=== PATIENT | male | born 1965 | race African-American/Black ===

== ENCOUNTER 2016-05-29 11:12 | Emergency (ER) | payer BC, MEDICAID ==
[~2016-05-29] VITALS: Ht 165.1 cm; Wt 65.9 kg
[~2016-05-29 11:12] MED LIST: COZA50TA PO; HYDR-3533 PO; HYDR50TA15 PO; LABE200T2 PO; NEPHRO PO; OMEP20TA39 PO
[2016-05-29 11:14] VITALS: BP 214/125; PULSE 96; RESP 29; TEMP 97.6; O2SAT 97
[2016-05-29] MEDS ORDERED: MORPHINE SULFATE 4 MG/ML INJ IM ONE (11:45)
[2016-05-29] MEDS ORDERED: ONDANSETRON HCL 4 MG/2 ML VIAL IM ONE (11:45)
[2016-05-29] MEDS ORDERED: NEPHTAB3 PO (11:55)
[2016-05-29] MEDS ORDERED: COZA50TA PO (11:55)
[2016-05-29] MEDS ORDERED: LABE200T2 PO (11:55)
[2016-05-29] MEDS ORDERED: HYDR50TA15 PO (11:55)
[2016-05-29] MEDS ORDERED: OMEP20TA PO (11:55)
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
[2016-05-29 12:10] VITALS: BP 214/110; PULSE 98; RESP 18
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
[2016-05-29] MEDS ORDERED: ACETAMINOPHEN/HYDROcodone 325 MG/5 MG TAB PO ONE (13:00)
[2016-05-29] MEDS ORDERED: hydrALAZINE HCL 50 MG TAB PO ONE (13:00)
[2016-05-29] MEDS ORDERED: LABETALOL HCL 200 MG TAB PO ONE (13:00)
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
[2016-05-29] MEDS ORDERED: HYDR-3533 PO (13:42)
[2016-05-29 14:10] VITALS: BP 108/56; PULSE 78; RESP 17; TEMP 97.8; O2SAT 98
--- NOTE | 2016-05-29 15:50 | RADRPT ---
EXAM DATE/TIME: 05/29/2016 14:41 [facility] COMPARISON: US ABDOMEN - LIVER, October 22, 2012, 14:24. INDICATIONS : Left arm swelling and pain. MEDICAL HISTORY : Hypertension. Renal failure. SURGICAL HISTORY : Hernia repair. Left arm AV fistula. ENCOUNTER: Subsequent ACUITY: 1 day PAIN SCORE: 3/10 LOCATION: Left arm. FINDINGS: There is spontaneous flow documented in the brachial, basilic, cephalic, axillary, and subclavian vei ns. The vessels are compressible and augmentation response is documented. No filling defects are se en. Note is made of a large AV fistula for hemodialysis within the arm. It is widely patent. CONCLUSION: 1. No DVT is identified. 2. The patient's AV fistula is patent. Saran Egan MD on May 29, 2016 at 15:47 Board Certified Radiologist. This report was verified electronically.
[2016-05-29 16:00] VITALS: BP 120/77; TEMP 97.8
== END 2016-05-29 16:00 | disposition home or self-care (01) ==
LOC: NEPC 11:12
DX: S40.022A Contusion of left upper arm, initial encounter (principal); V19.9XXA Pedal cyclist (driver) (passenger) injured in unspecified traffic accident, initial encounter; Y93.55 Activity, bike riding
CPT/HCPCS: 73080; 73090; 73130; 93971; 96372; 99284; J2270; J2405

== ENCOUNTER 2016-06-26 20:06 | Observation (INO) | payer MEDICAID ==
[~2016-06-26 20:06] MED LIST changes: -NEPHRO PO; +NEPHTAB3 PO; +OMEP20TA PO; -OMEP20TA39 PO
[2016-06-26 20:08] VITALS: BP 180/120; PULSE 98; RESP 20; TEMP 98.8; O2SAT 94
--- NOTE | 2016-06-26 20:29 | PD ---
Physical Exam Time Seen by Provider: 20:29 Narrative 50 y/o male c/o of cp/sob/neck pain for 1.5 hrs, started after a nap. Missed dialysis yesterday. Dialysis trs. vital signs reviewed. Seen at triage desk. Awaiting bed placement. Data Data Last Documented VS Vital Signs Date Time Temp Pulse Resp B/P Pulse Ox O2 Delivery O2 Flow Rate FiO2 06/26/16 20:08 98.8 98 20 180/120 94 Room Air [facility] Medical Record Reviewed: Yes Supervised Visit with BERNY: Mike Landa June 26, 2016 20:29
[2016-06-26] MEDS ORDERED: SODIUM CHLORIDE 0.9% FLUSH 10 ML FLUSH IVF PRN (21:15)
[2016-06-26] MEDS ORDERED: ASPIRIN 81 MG CHEW TAB PO ONE (21:15)
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
[2016-06-26 21:20] VITALS: RESP 22; O2SAT 98
[2016-06-26 21:25] LABS: AUTOMATED NEUTROPHIL # 8.7 TH/MM3 (1.8-7.7); BASOPHIL # 0.1 TH/MM3 (0-0.2); BASOPHIL % 0.6 % (0.0-2.0); EOSINOPHIL # 0.1 TH/MM3 (0-0.4); EOSINOPHIL % 0.9 % (0.0-4.0); HEMATOCRIT 39.8 % (39.0-51.0); HEMO FLAGS DIFF FINAL; LYMPH % 13.8 % (9.0-44.0); LYMPHOCYTE # 1.6 TH/MM3 (1.0-4.8); MEAN CELL VOLUME 91.7 FL (80.0-100.0); MEAN CORPUSCULAR HEMOGLOBIN 31.1 PG (27.0-34.0); MEAN CORPUSCULAR HGB CONC 33.9 % (32.0-36.0); MONO % 8.3 % (0.0-8.0); NEUT % 76.4 % (16.0-70.0); PLATELET COUNT 225 TH/MM3 (150-450); RED BLOOD COUNT 4.34 MIL/MM3 (4.50-5.90); RED CELL DISTRIBUTION WIDTH 14.3 % (11.6-17.2); WHITE BLOOD COUNT 11.4 TH/MM3 (4.0-11.0)
[2016-06-26 21:40] LABS: APTT (PATIENT) 26.6 SEC (24.3-30.1); PROTHROMBIN TIME - PATIENT 10.7 SEC (9.8-11.6)
--- NOTE | 2016-06-26 21:43 | RADRPT ---
EXAM DATE/TIME: 06/26/2016 21:25 [facility] COMPARISON: CHEST SINGLE AP, April 21, 2014, 5:31. INDICATIONS : Chest pain and short of breath. MEDICAL HISTORY : Hypertension. Renal failure. SURGICAL HISTORY : Hernia repair. Left arm AV fistula. ENCOUNTER: Initial ACUITY: 1 day PAIN SCORE: 5/10 LOCATION: Bilateral chest FINDINGS: A single view of the chest demonstrates the lungs to be symmetrically aerated without evidence of mas s, infiltrate or effusion. The cardiomediastinal contours are unremarkable. Osseous structures are intact. CONCLUSION: No acute disease. Da Zuniga MD on June 26, 2016 at 21:39 Board Certified Radiologist. This report was verified electronically.
[2016-06-26 22:04] LABS: ANION GAP 7 MEQ/L (5-15); AST (GOT) 31 U/L (15-37); BICARBONATE 27.1 MEQ/L (21.0-32.0); BLOOD UREA NITROGEN 22 MG/DL (7-18); CHLORIDE 108 MEQ/L (98-107); GLOMERULAR FILTRATION RATE 29 ML/MIN (>89); MAGNESIUM 2.1 MG/DL (1.5-2.5); POTASSIUM 3.7 MEQ/L (3.5-5.1); SODIUM (NA) 142 MEQ/L (136-145)
[2016-06-26 22:08] LABS: ALKALINE PHOSPHATASE 100 U/L (45-117); ALT (GPT) 27 U/L (12-78); CREATINE KINASE 571 U/L (39-308); TOTAL BILIRUBIN ADULT 1.1 MG/DL (0.2-1.0)
[2016-06-26 22:21] LABS: CKMB 1.3 NG/ML (0.5-3.6)
[2016-06-26 22:45] VITALS: BP 199/98; PULSE 92; RESP 17; O2SAT 95
[2016-06-26] MEDS ORDERED: hydrALAZINE HCL 20 MG/ML VIAL IV PUSH ONE (22:45)
[2016-06-26 23:00] VITALS: BP 194/96; PULSE 96; RESP 16; O2SAT 96
[2016-06-26] MEDS ORDERED: SODIUM CHLORIDE 0.9% FLUSH 10 ML FLUSH IV FLUSH PRN (23:15)
[2016-06-26] MEDS ORDERED: NALOXONE HCL 0.4 MG/ML AMP IV PRN (23:15)
[2016-06-27] VITALS (12 sets, daily range): BP systolic 115–189; BP diastolic 66–111; PULSE 9–99; RESP 0–20; TEMP 98.2–98.5; O2SAT 92–95
[2016-06-27] MEDS ORDERED: hydrALAZINE HCL 20 MG/ML VIAL IV PUSH ONE (00:30)
[2016-06-27 05:35] LABS: AUTOMATED NEUTROPHIL # 6.6 TH/MM3 (1.8-7.7); BASOPHIL % 0.5 % (0.0-2.0); EOSINOPHIL # 0.2 TH/MM3 (0-0.4); EOSINOPHIL % 1.8 % (0.0-4.0); HEMATOCRIT 38.2 % (39.0-51.0); HEMO FLAGS DIFF FINAL; LYMPH % 14.9 % (9.0-44.0); LYMPHOCYTE # 1.3 TH/MM3 (1.0-4.8); MEAN CELL VOLUME 92.4 FL (80.0-100.0); MEAN CORPUSCULAR HEMOGLOBIN 30.4 PG (27.0-34.0); MEAN CORPUSCULAR HGB CONC 32.9 % (32.0-36.0); MONO % 7.4 % (0.0-8.0); NEUT % 75.4 % (16.0-70.0); PLATELET COUNT 200 TH/MM3 (150-450); RED BLOOD COUNT 4.13 MIL/MM3 (4.50-5.90); RED CELL DISTRIBUTION WIDTH 14.2 % (11.6-17.2); WHITE BLOOD COUNT 8.8 TH/MM3 (4.0-11.0)
[2016-06-27 05:45] LABS: BICARBONATE 26.7 MEQ/L (21.0-32.0); POTASSIUM 3.3 MEQ/L (3.5-5.1)
--- NOTE | 2016-06-27 06:28 | HHI.HP ---
[facility] Service [facility] Primary Care Physician Orlin Hopson DO Admission Diagnosis Chest pain, ESRD on HD Diagnoses: Chief Complaint: could not breathe Travel History International Travel<30 Days: No Contact w/Intl Traveler <30 Da: No Traveled to Known Affected Are: No History of Present Illness History from patient, ER physician communication current review of medical records. Patient reported that he came to the hospital because he could not breathe for the past 24 hours. He denies any cough. Denies fever. Denies seeing any swelling of his legs. He states that he just simply could not breathe anymore. He reports his last dialysis was on Friday. he states he misses Friday dialysis Patient also reports of chest pain. He states that it is midsternal, and just sitting there. Not associated with taking a deep breath. No radiation. Apart from the above, patient denies any nausea/palpitations/focal deficits. He denies any vomiting/diarrhea. Review of Systems Except as stated in HPI: all other systems reviewed are Neg Past Family Social History Past Medical History Hypertension diabetes ESRD on hemodialysis Past Surgical History av fistula Allergies: Coded Allergies: *MDRO Multi-Drug Resistant Organism (Verified Adverse Reaction, Unknown, ) MRSA PCR Screen POSITIVE - 06/27/2016 MRSA (arm) - 08/2003 Family History mother on dialysis Social History smokes half a pack socially drinks no drugs Physical Exam Vital Signs Vital Signs Date Time Temp Pulse Resp B/P Pulse Ox O2 Delivery O2 Flow Rate FiO2 06/27/16 04:23 94 06/27/16 04:20 9 161/96 06/27/16 03:31 98.4 90 0 189/108 95 06/27/16 01:00 92 14 173/93 95 Room Air 06/27/16 00:28 93 14 177/94 95 Room Air 06/27/16 00:18 99 14 184/102 95 Room Air 06/26/16 23:00 96 16 194/96 96 Room Air 06/26/16 22:45 92 17 199/98 95 Room Air 06/26/16 21:20 22 98 Room Air 06/26/16 20:28 06/26/16 20:08 98.8 98 20 180/120 94 Room Air Physical Exam GENERAL: This is a well-nourished, well-developed patient, in no apparent distress. SKIN: No rashes, ecchymoses or lesions. Cool and dry. HEAD: Atraumatic. Normocephalic. No temporal or scalp tenderness. EYES: No scleral icterus. No injection or drainage. ENT: Nose without bleeding, purulent drainage or septal hematoma. Airway patent. NECK: Trachea midline. No JVD CARDIOVASCULAR: Regular rate and rhythm without murmurs, gallops, or rubs. RESPIRATORY: bilateral minimal basilar rales GASTROINTESTINAL: Abdomen soft, non-tender, nondistended. No guarding. MUSCULOSKELETAL: Extremities without clubbing, cyanosis, or edema. No calf tenderness. NEUROLOGICAL: Awake and alert. Motor and sensory grossly within normal limits. Normal speech. Laboratory Laboratory Tests Test 06/26/16 06/27/16 06/27/16 21:15 03:14 04:34 White Blood Count 11.4 8.8 Red Blood Count 4.34 4.13 Hemoglobin 13.5 12.6 Hematocrit 39.8 38.2 Mean Corpuscular Volume 91.7 92.4 Mean Corpuscular Hemoglobin 31.1 30.4 Mean Corpuscular Hemoglobin 33.9 32.9 Concent Red Cell Distribution Width 14.3 14.2 Platelet Count 225 200 Mean Platelet Volume 8.7 9.2 Neutrophils (%) (Auto) 76.4 75.4 Lymphocytes (%) (Auto) 13.8 14.9 Monocytes (%) (Auto) 8.3 7.4 Eosinophils (%) (Auto) 0.9 1.8 Basophils (%) (Auto) 0.6 0.5 Neutrophils # (Auto) 8.7 6.6 Lymphocytes # (Auto) 1.6 1.3 Monocytes # (Auto) 0.9 0.7 Eosinophils # (Auto) 0.1 0.2 Basophils # (Auto) 0.1 0.0 CBC Comment DIFF FINAL DIFF FINAL Differential Comment Prothrombin Time 10.7 Prothromb Time International 1.0 Ratio Activated Partial 26.6 Thromboplast Time Sodium Level 142 143 Potassium Level 3.7 3.3 Chloride Level 108 108 Carbon Dioxide Level 27.1 26.7 Anion Gap 7 8 Blood Urea Nitrogen 22 21 Creatinine 2.81 2.66 Estimat Glomerular Filtration 29 31 Rate Random Glucose 94 180 Calcium Level 8.7 8.5 Magnesium Level 2.1 Total Bilirubin 1.1 Aspartate Amino Transf 31 (AST/SGOT) Alanine Aminotransferase 27 (ALT/SGPT) Alkaline Phosphatase 100 Total Creatine Kinase 571 570 Creatine Kinase MB 1.3 1.0 Creatine Kinase MB % 0.2 0.2 Troponin I 0.03 0.02 Total Protein 6.7 Albumin 3.1 Lipase 131 Result Diagram: 06/27/16 0434 06/27/16 0434 Imaging Last 48 hours Impressions Chest X-Ray 06/26/162105 Signed Impressions: Service Date/Time: Sunday, June 26, 2016 21:25 - CONCLUSION: No acute disease. Da Zuniga MD Assessment and Plan Assessment and Plan Impression: Shortness of breathsecondary to missed dialysis session Chest painrule out ACS Hypertension diabetes ESRD on hemodialysis Plan: Serial cardiac enzymes and EKGs. History is not suggestive of ACS. Will want to cover with sliding scale coverage. Nephrology consult for dialysis in a.m. DVT prophylaxiswith heparin. Discussed Condition With Patient, ER physician from her previous nurse Jitendra Lazo MD June 27, 2016 06:28
[2016-06-27] MEDS ORDERED: GLUCAGON 1 MG/ML VIAL OTHER PRN (07:30)
[2016-06-27] MEDS ORDERED: DEXTROSE 50% IN WATER 50 ML VIAL(D50) IV PUSH PRN (07:30)
[2016-06-27] MEDS ORDERED: SODIUM CHLOR 0.9% 1000 ML INJ 1,000 ML IV PRN ×3 (09:22)
[2016-06-27] MEDS ORDERED: HEPARIN SODIUM - IV 10,000 UNITS/10 ML VIAL IVF PRN (09:30)
[2016-06-27] MEDS ORDERED: ALBUMIN HUMAN 25% 25 GM/100 ML BAGP IV PRN (09:30)
[2016-06-27] MEDS ORDERED: SODIUM CHLORIDE 0.9% FLUSH 10 ML FLUSH IV FLUSH PRN (09:30)
[2016-06-27] MEDS ORDERED: NITROGLYCERIN 0.4 MG SL 25 TABS/BTL SL PRN (09:30)
[2016-06-27] MEDS ORDERED: GELATIN 12 MM/7 MM FOAM TOP PRN (09:30)
[2016-06-27] MEDS ORDERED: GENTAMICIN SULFATE (DIALYSIS USE ONLY) 20 MG/2 ML VIAL IV PRN (09:30)
[2016-06-27] MEDS ORDERED: diphenhydrAMINE HCL 25 MG CAP PO PRN (09:30)
[2016-06-27] MEDS ORDERED: HEPARIN SODIUM - IV 10,000 UNITS/10 ML VIAL PRN (09:30)
[2016-06-27] MEDS ORDERED: MANNITOL 12.5 GM/50 ML VIAL IV PRN (09:30)
[2016-06-27] MEDS ORDERED: ACETAMINOPHEN 325 MG TAB PO PRN (09:30)
[2016-06-27] MEDS ORDERED: ONDANSETRON HCL 4 MG/2 ML VIAL IV PRN (09:30)
[2016-06-27] MEDS ORDERED: cloNIDine HCL 0.1 MG TAB PO PRN (09:30)
--- NOTE | 2016-06-27 09:39 | PD.CONS ---
HPI Service Nephrology Consult Requested By Dr. Valdez Reason for Consult ESRD on HD TTS Primary Care Physician Orlin Hopson, DO History of Present Illness This is out 50 y/o AAM dialysis patient, normally receives dialysis TTS. He did not show up for treatment Friday, was admitted last night for shortness of breath and also reports midsternal chest pain. Despite missing dialysis his creatinine is only 2.6. He makes some urine but not a lot. PMH of Hepatitis B, hx of IVDA, HTN, we were consulted for dialysis management. His K is 3.3 today, BP was elevated on admission. He has functioning AVF on his left arm for dialysis, he is a full code. (Zunilda Sharpe) Review of Systems Constitutional: DENIES: Fatigue, Weight gain Respiratory: COMPLAINS OF: Shortness of breath, DENIES: Sputum production Cardiovascular: COMPLAINS OF: Chest pain, Dyspnea on Exertion, DENIES: Palpitations, Lower Extremity Edema Gastrointestinal: DENIES: Abdominal pain, Nausea (Zunilda Sharpe) Past Family Social History Allergies: Coded Allergies: *MDRO Multi-Drug Resistant Organism (Verified Adverse Reaction, Unknown, ) MRSA PCR Screen POSITIVE - 06/27/2016 MRSA (arm) - 08/2003 Past Medical History ESRD on HD TTS HTN hepatitis B Hx IVDA metabolic bone disorder Past Surgical History Left arm AVF inguinal hernia repair Reported Medications Omeprazole 20 Mg Tab 20 Mg PO DAILY Nephro-Emmanuel (B-Complex W/ C & Folic Acid) 1 Tab 1 Tab PO DAILY Labetalol (Labetalol HCl) 200 Mg Tab 200 Mg PO BID Cozaar (Losartan Potassium) 50 Mg Tab 50 Mg PO DAILY Hydralazine (Hydralazine HCl) 50 Mg Tab 50 Mg PO TID Take with a meal Active Ordered Medications Current Medications Medications (Trade) Dose Ordered Sig/Deanna Route Start Time Stop Time Status Last Admin (NS Flush) 2 ml UNSCH PRN IV FLUSH 06/26/16 23:15 (NS Flush) 2 ml BID IV FLUSH 06/27/16 09:00 (Narcan Inj) 0.4 mg UNSCH PRN IV 06/26/16 23:15 (Apresoline) 50 mg TID PO 06/27/16 09:00 (Trandate) 200 mg BID PO 06/27/16 09:00 (Cozaar) 50 mg DAILY PO 06/27/16 09:00 (Nephrocaps) 1 cap DAILY PO 06/27/16 09:00 (Protonix) 20 mg DAILY PO 06/27/16 09:00 (D50w (Vial) Inj) 25 ml UNSCH PRN IV PUSH 06/27/16 07:30 Glucagon 1 mg 1 mg UNSCH PRN OTHER 06/27/16 07:30 (NS 1000 ml Inj) 1,000 ml @ 0 mls/hr Q0M PRN IV 06/27/16 09:22 UNV Heparin Sodium (Porcine) 8000 units 8,000 units UNSCH PRN IVF 06/27/16 09:30 UNV Sodium Chloride 1,000 ml @ 200 mls/hr Q5H PRN IV 06/27/16 09:22 UNV (NS 1000 ml Inj) 1,000 ml @ 0 mls/hr Q0M PRN IV 06/27/16 09:22 UNV (Mannitol Inj) 12.5 gm UNSCH PRN IV 06/27/16 09:30 UNV (Albumin 25% Inj) 25 gm UNSCH PRN IV 06/27/16 09:30 UNV (NS Flush) 5 ml UNSCH PRN IV FLUSH 06/27/16 09:30 UNV (Heparin Inj) UNSCH PRN .XX 06/27/16 09:30 UNV (Gentamicin (Dialysis) Inj) 20 mg UNSCH PRN IV 06/27/16 09:30 UNV (Zofran Inj) 4 mg UNSCH PRN IV 06/27/16 09:30 UNV (Tylenol) 650 mg UNSCH PRN PO 06/27/16 09:30 UNV (Benadryl) 25 mg UNSCH PRN PO 06/27/16 09:30 UNV (Nitrostat Sl) 0.4 mg UNSCH PRN SL 06/27/16 09:30 UNV (Catapres) 0.1 mg UNSCH PRN PO 06/27/16 09:30 UNV (Gelfoam 12 Mm/7 Mm Top) 1 foam UNSCH PRN TOP 06/27/16 09:30 UNV Family History his mother has ESRD Social History former smoker former IVDA denies ETOH unemployed lives with full code (Zunilda Sharpe) Physical Exam Vital Signs Vital Signs Date Time Temp Pulse Resp B/P Pulse Ox O2 Delivery O2 Flow Rate FiO2 06/27/16 07:35 98.2 85 18 184/111 95 06/27/16 04:23 94 06/27/16 04:20 9 161/96 06/27/16 03:31 98.4 90 0 189/108 95 06/27/16 01:00 92 14 173/93 95 Room Air 06/27/16 00:28 93 14 177/94 95 Room Air 06/27/16 00:18 99 14 184/102 95 Room Air 06/26/16 23:00 96 16 194/96 96 Room Air 06/26/16 22:45 92 17 199/98 95 Room Air 06/26/16 21:20 22 98 Room Air 06/26/16 20:28 06/26/16 20:08 98.8 98 20 180/120 94 Room Air Physical Exam MIddle aged AAM Neuro: awake/alert and oriented with no deficit CV: S1/S2, regular no murmurs Resp: clear in all orozco GI: flat, soft, non tender : no scrotal edema Ext: AVF left arm, + thrill/bruit; no edema to lower ext Laboratory Laboratory Tests Test 06/26/16 06/27/16 06/27/16 21:15 03:14 04:34 White Blood Count 11.4 8.8 Red Blood Count 4.34 4.13 Hemoglobin 13.5 12.6 Hematocrit 39.8 38.2 Mean Corpuscular Volume 91.7 92.4 Mean Corpuscular Hemoglobin 31.1 30.4 Mean Corpuscular Hemoglobin 33.9 32.9 Concent Red Cell Distribution Width 14.3 14.2 Platelet Count 225 200 Mean Platelet Volume 8.7 9.2 Neutrophils (%) (Auto) 76.4 75.4 Lymphocytes (%) (Auto) 13.8 14.9 Monocytes (%) (Auto) 8.3 7.4 Eosinophils (%) (Auto) 0.9 1.8 Basophils (%) (Auto) 0.6 0.5 Neutrophils # (Auto) 8.7 6.6 Lymphocytes # (Auto) 1.6 1.3 Monocytes # (Auto) 0.9 0.7 Eosinophils # (Auto) 0.1 0.2 Basophils # (Auto) 0.1 0.0 CBC Comment DIFF FINAL DIFF FINAL Differential Comment Prothrombin Time 10.7 Prothromb Time International 1.0 Ratio Activated Partial 26.6 Thromboplast Time Sodium Level 142 143 Potassium Level 3.7 3.3 Chloride Level 108 108 Carbon Dioxide Level 27.1 26.7 Anion Gap 7 8 Blood Urea Nitrogen 22 21 Creatinine 2.81 2.66 Estimat Glomerular Filtration 29 31 Rate Random Glucose 94 180 Calcium Level 8.7 8.5 Magnesium Level 2.1 Total Bilirubin 1.1 Aspartate Amino Transf 31 (AST/SGOT) Alanine Aminotransferase 27 (ALT/SGPT) Alkaline Phosphatase 100 Total Creatine Kinase 571 570 Creatine Kinase MB 1.3 1.0 Creatine Kinase MB % 0.2 0.2 Troponin I 0.03 0.02 Total Protein 6.7 Albumin 3.1 Lipase 131 (Zunilda Sharpe) Result Diagram: 06/27/16 0434 06/27/16 0434 Imaging Last 72 hours Impressions Chest X-Ray 06/26/162105 Signed Impressions: Service Date/Time: Friday, June 26, 2016 21:25 - CONCLUSION: No acute disease. Da Zuniga MD (Zunilda Sharpe) Assessment and Plan Problem List: (1) ESRD (end stage renal disease) Plan: Resume TTS dialysis, orders entered, will have treatment today we discussed the possibility of holding dialysis as his creatinine is not that high despite having no HD since Friday; however he reports shortness of breath when he has missed treatments, similar to the symptoms today; therefore we will continue TTS HD he has patent AVF on left side for dialysis K 3.3, give 20 po KCL, repeat labs tomorrow avoid IVF, gadolinium renal diet with no protein restriction (2) HTN (hypertension) Plan: losartan, labetalol, and hydralazine were restarted per home medication list monitor BP and titrate medications as needed (3) Metabolic bone disease Plan: check phosphorus, initiate binders if needed (Zunilda Sharpe) Problem List: (1) ESRD (end stage renal disease) Plan: Resume TTS dialysis, orders entered, will have treatment today we discussed the possibility of holding dialysis as his creatinine is not that high despite having no HD since Friday; however he reports shortness of breath when he has missed treatments, similar to the symptoms today; therefore we will continue TTS HD he has patent AVF on left side for dialysis K 3.3, give 20 po KCL, repeat labs tomorrow avoid IVF, gadolinium renal diet with no protein restriction (2) HTN (hypertension) Plan: losartan, labetalol, and hydralazine were restarted per home medication list monitor BP and titrate medications as needed (3) Metabolic bone disease Plan: check phosphorus, initiate binders if needed Assessment and Plan patient was seen and examined. Agree with above assessment and plan. He can be discharged from renal standpoint. (Bernabe Pearson MD) Zunilda SharpeP June 27, 2016 09:39 Bernabe Pearson MD June 27, 2016 20:23
[2016-06-27] MEDS ORDERED: POTASSIUM CHLORIDE 20 MEQ CONTROLLED RELEASE TAB PO ONE (09:45)
[2016-06-27] MEDS: PANTOPRAZOLE SOD 20 MG DELAYED RELEASE TAB PO SCH (09:52)
[2016-06-27] MEDS: SODIUM CHLORIDE 0.9% FLUSH 10 ML FLUSH IV FLUSH SCH ×2 (09:52→20:32)
[2016-06-27] MEDS: LABETALOL HCL 200 MG TAB PO SCH ×2 (09:52→20:31)
[2016-06-27] MEDS: LOSARTAN 50 MG TAB PO SCH (09:52)
[2016-06-27] MEDS: hydrALAZINE HCL 50 MG TAB PO SCH ×3 (10:00→18:00)
[2016-06-27] MEDS: VITAMIN B CMPLX/VITC/FOLIC AC CAP PO SCH (10:09)
[2016-06-27] MEDS: INSULIN ASPART SUPPLEMENTAL SCALE SQ SCH ×3 (11:00→20:32)
[2016-06-27 12:15] LABS: CKMB 0.8 NG/ML (0.5-3.6)
--- NOTE | 2016-06-27 18:25 | EKG ---
Date Performed: 06/26/2016 Time Performed: 20:41:00 PTAGE: 50 years EKG: Sinus rhythm POSSIBLE LEFT ATRIAL ENLARGEMENT POSSIBLE LEFT VENTRICULAR HYPERTROPHY NONSPECIFIC T-WAVE ABNORMALIT Y ABNORMAL ECG Compared to prior tracing no significant change PREVIOUS TRACING : 10/23/2013 09.59 DOCTOR: Beka Hastings Interpretating Date/Time 06/27/2016 18:23:21
--- NOTE | 2016-06-27 18:25 | EKG ---
Date Performed: 06/26/2016 Time Performed: 20:58:03 PTAGE: 50 years EKG: Sinus rhythm POSSIBLE LEFT ATRIAL ENLARGEMENT POSSIBLE LEFT VENTRICULAR HYPERTROPHY NONSPECIFIC T-WAVE ABNORMALIT Y ABNORMAL ECG Compared to prior tracing no significant change PREVIOUS TRACING : 06/26/2016 20.41 DOCTOR: Beka Hastings Interpretating Date/Time 06/27/2016 18:23:09
--- NOTE | 2016-06-27 18:25 | EKG ---
Date Performed: 06/27/2016 Time Performed: 03:14:43 PTAGE: 50 years EKG: Sinus rhythm POSSIBLE LEFT ATRIAL ENLARGEMENT POSSIBLE LEFT VENTRICULAR HYPERTROPHY NONSPECIFIC T-WAVE ABNORMALIT Y ABNORMAL ECG Compared to prior tracing no significant change PREVIOUS TRACING : 06/26/2016 20.58 DOCTOR: Beka Hastings Interpretating Date/Time 06/27/2016 18:22:58
[2016-06-27] MEDS: SEVELAMER CARBONATE 800 MG TAB PO SCH (18:42)
[2016-06-28] VITALS: BP 119/74; PULSE 87; RESP 18; TEMP 98; O2SAT 92
[2016-06-28 03:43] VITALS: PULSE 82
[2016-06-28 04:00] VITALS: BP 135/78; PULSE 80; RESP 19; TEMP 98; O2SAT 92
[2016-06-28] MEDS: INSULIN ASPART SUPPLEMENTAL SCALE SQ SCH (06:46)
[2016-06-28 07:44] VITALS: O2SAT 92
[2016-06-28] MEDS: hydrALAZINE HCL 50 MG TAB PO SCH (08:17)
[2016-06-28] MEDS: SEVELAMER CARBONATE 800 MG TAB PO SCH (08:17)
[2016-06-28] MEDS: VITAMIN B CMPLX/VITC/FOLIC AC CAP PO SCH (08:17)
[2016-06-28] MEDS: LOSARTAN 50 MG TAB PO SCH (08:17)
[2016-06-28] MEDS: SODIUM CHLORIDE 0.9% FLUSH 10 ML FLUSH IV FLUSH SCH (08:18)
[2016-06-28] MEDS: LABETALOL HCL 200 MG TAB PO SCH (08:18)
[2016-06-28] MEDS: PANTOPRAZOLE SOD 20 MG DELAYED RELEASE TAB PO SCH (08:18)
[2016-06-28] MEDS ORDERED: POTASSIUM PHOSPHATE/SODIUM PHOSPHATE 250 MG TAB PO ONE (09:15)
--- NOTE | 2016-06-28 10:43 | HHI.PR ---
Subjective Remarks Follow up for chest pain, shortness of breath. The patient states he feels much better after receiving dialysis yesterday. Denies any chest pain or shortness of breath overnight. He is tolerating oral intake. He denies any other medical complaints. He feels ready for discharge. Objective Vitals Vital Signs Date Time Temp Pulse Resp B/P Pulse Ox O2 Delivery O2 Flow Rate FiO2 06/28/16 04:00 98.0 80 19 135/78 92 06/28/16 03:43 82 06/28/16 00:00 98.0 87 18 119/74 92 06/27/16 20:06 98.3 89 20 115/66 92 06/27/16 20:00 93 06/27/16 20:00 93 06/27/16 16:44 98.5 83 16 152/94 95 06/27/16 12:37 86 06/27/16 11:19 98.4 86 16 131/74 95 I/O 06/27/16 06/27/16 06/27/16 06/28/16 06/28/16 06/28/16 07:00 15:00 23:00 07:00 15:00 23:00 Intake Total 360 ml 320 ml Output Total 2500 ml Balance 360 ml -2500 ml 320 ml Intake Oral 360 ml 320 ml Output Hemodialysis 2500 ml # Voids 1 1 Result Diagram: 06/27/16 0434 06/27/16 0434 Imaging Last Impressions Chest X-Ray 06/26/162105 Signed Impressions: Service Date/Time: Sunday, June 26, 2016 21:25 - CONCLUSION: No acute disease. Da Zuniga MD Objective Remarks GENERAL: Well-nourished, well-developed middle aged AA male patient in [facility]. SKIN: Warm and dry. No rash. HEENT: Normocephalic. Atraumatic.Pupils equal and round. Mucous membranes pink and moist. NECK: Supple. Trachea midline. CARDIOVASCULAR: Regular rate and rhythm. S1, S2 noted. No murmur appreciated. RESPIRATORY: No accessory muscle use. Clear to auscultation. Breath sounds equal bilaterally. GASTROINTESTINAL: Abdomen soft, non-tender, nondistended. Normoactive bowel sounds x4. MUSCULOSKELETAL: No obvious deformities. Extremities without clubbing, cyanosis , or edema. NEUROLOGICAL: Awake and alert. No obvious cranial nerve deficits. Motor grossly within normal limits. Normal speech. PSYCHIATRIC: Appropriate mood and affect; insight and judgment normal. Medications and IVs Current Medications Medications (Trade) Dose Ordered Sig/Deanna Route Start Time Stop Time Status Last Admin (NS Flush) 2 ml UNSCH PRN IV FLUSH 06/26/16 23:15 (NS Flush) 2 ml BID IV FLUSH 06/27/16 09:00 06/27/16 20:32 (Narcan Inj) 0.4 mg UNSCH PRN IV 06/26/16 23:15 (Apresoline) 50 mg TID PO 06/27/16 09:00 06/28/16 08:17 (Trandate) 200 mg BID PO 06/27/16 09:00 06/28/16 08:18 (Cozaar) 50 mg DAILY PO 06/27/16 09:00 06/28/16 08:17 (Nephrocaps) 1 cap DAILY PO 06/27/16 09:00 06/28/16 08:17 (Protonix) 20 mg DAILY PO 06/27/16 09:00 06/28/16 08:18 (D50w (Vial) Inj) 25 ml UNSCH PRN IV PUSH 06/27/16 07:30 Glucagon 1 mg 1 mg UNSCH PRN OTHER 06/27/16 07:30 (NS 1000 ml Inj) 1,000 ml @ 0 mls/hr Q0M PRN IV 06/27/16 09:22 Heparin Sodium (Porcine) 8000 units 8,000 units UNSCH PRN IVF 06/27/16 09:30 Sodium Chloride 1,000 ml @ 200 mls/hr Q5H PRN IV 06/27/16 09:22 (NS 1000 ml Inj) 1,000 ml @ 0 mls/hr Q0M PRN IV 06/27/16 09:22 (Mannitol Inj) 12.5 gm UNSCH PRN IV 06/27/16 09:30 (Albumin 25% Inj) 25 gm UNSCH PRN IV 06/27/16 09:30 (NS Flush) 5 ml UNSCH PRN IV FLUSH 06/27/16 09:30 (Heparin Inj) UNSCH PRN .XX 06/27/16 09:30 (Gentamicin (Dialysis) Inj) 20 mg UNSCH PRN IV 5/4/17 09:30 (Zofran Inj) 4 mg UNSCH PRN IV 06/27/16 09:30 (Tylenol) 650 mg UNSCH PRN PO 06/27/16 09:30 (Benadryl) 25 mg UNSCH PRN PO 06/27/16 09:30 (Nitrostat Sl) 0.4 mg UNSCH PRN SL 06/27/16 09:30 (Catapres) 0.1 mg UNSCH PRN PO 06/27/16 09:30 (Gelfoam 12 Mm/7 Mm Top) 1 foam UNSCH PRN TOP 06/27/16 09:30 06/27/16 17:15 A/P Assessment and Plan 50-year-old male with history of HTN, ESRD on HD [facility], presents with a 1 day history of shortness of breath and chest pain after missing his dialysis. Shortness of Breath and Atypical Chest Pain: suspect secondary to Fluid Overload from missing dialysis. -ACS ruled out with negative serial cardiac enzymes x3 and EKG without acute ischemic changes. -Consult nephrology, received dialysis 06/27. -monitored on telemetry -Symptoms resolved s/p dialysis -cleared for discharge by nephrology ESRD on HD: follows with Dr. Moses as outpatient. On HD [facility]. -consult nephrology, received dialysis -outpatient follow up with Dr. Moses Hypertension: chronic, stable -continue patient's labetalol, cozaar, hydralazine Discharge Planning Discharge patient to home Condition on discharge: Improved Heart Healthy/Renal Diet as tolerated Ad Tasha activity Rx written: none. Follow-up with primary care physician Dr. Hopson and nephrology Yamile Cavanaugh PA-C June 28, 2016 10:42 am
--- NOTE | 2016-06-28 10:44 | HHI.DCPOC ---
Discharge Care Plan Diagnosis: (1) Chest pain in adult (2) ESRD (end stage renal disease) (3) HTN (hypertension) Goals to Promote Your Health * To prevent worsening of your condition and complications * To maintain your health at the optimal level Directions to Meet Your Goals Take your medications as prescribed Follow your dietary instruction Follow activity as directed Keep your appointments as scheduled Take your immunizations and boosters as scheduled If your symptoms worsen call your PCP, if no PCP go to Urgent Care Center or Emergency Room Smoking is Dangerous to Your Health. Avoid second hand smoke Call the 24-hour hour crisis hotline for domestic abuse at Yamile Jimenez PA-C June 28, 2016 10:44 am
[2016-06-28 10:54] LABS: BICARBONATE 29.9 MEQ/L (21.0-32.0); POTASSIUM 3.8 MEQ/L (3.5-5.1)
--- NOTE | 2016-06-28 11:16 | HHI.NPPN ---
Subjective Complaints: Chest Pain Renal Failure: Chronic, End Stage Renal Disease Interval History Resting. No chest pain currently. Dialyzed yesterday. (Zunilda Sharpe) Review of Systems Cardiovascular Cardiac: Chest Pain (Zunilda Sharpe) Objective Data Data 06/27/16 06/28/16 19:00 07:00 Intake Total 360 ml 320 ml Output Total 2500 ml Balance -2140 ml 320 ml Intake Oral 360 ml 320 ml Output Hemodialysis 2500 ml # Voids 1 1 Vital Signs Date Time Temp Pulse Resp B/P Pulse Ox O2 Delivery O2 Flow Rate FiO2 06/28/16 04:00 98.0 80 19 135/78 92 06/28/16 03:43 82 06/28/16 00:00 98.0 87 18 119/74 92 06/27/16 20:06 98.3 89 20 115/66 92 06/27/16 20:00 93 06/27/16 20:00 93 06/27/16 16:44 98.5 83 16 152/94 95 06/27/16 12:37 86 06/27/16 11:19 98.4 86 16 131/74 95 (Zunilda Sharpe) -: 06/27/16 0434 06/28/16 1011 Imaging Last 72 hours Impressions Chest X-Ray 06/26/162105 Signed Impressions: Service Date/Time: Sunday, June 26, 2016 21:25 - CONCLUSION: No acute disease. Da Zuniga MD (Zunilda Sharpe) Physical Exam General Appearance: Well Developed, Well Nourished, No Acute Distress, Sleeping ( Zunilda Sharpe) Throat Throat Exam: Oral Mucosa [place] & Moist (Zunilda Sharpe) Neck Neck Exam: Neck Supple (Zunilda Sharpe) Pulmonary Resp Exam: Clear Bilaterally, Breath Sounds Equal (Zunilda Sharpe) Cardiology CV Exam: Regular, Normal Sinus Rhythm, Good Perfusion (Zunilda Sharpe) Gastrointestinal/Abdomen GI Exam: Soft, Non-Tender, Bowel Sounds Present (Zunilda Sharpe) Musculoskeletal MS Exam: Joints Intact, Normal Tone, Good Strength (Zunilda Sharpe) Integumentary Skin Exam: Clear, Warm, Dry, Intact (Zunilda Sharpe) Extremeties Extremities Exam: No Edema, Pedal Pulses Palpable (Zunilda Sharpe) Neurologic Neuro Exam: Alert, Awake, Oriented, Speech Clear, Moving All Extremities ( Zunilda Sharpe) Assessment/Plan Discussed Condition With: Patient Assessment Summary: Anemia of CKD, End Stage Renal Disease Problem List: (1) ESRD (end stage renal disease) Plan: continue TTS dialysis,he had 2500 ml UF yesterday stable from renal perspective, continue current orders he has patent AVF on left side for dialysis K corrected avoid IVF, gadolinium renal diet with no protein restriction (2) HTN (hypertension) Plan: continue losartan, labetalol, and hydralazine BP stable monitor BP and titrate medications as needed (3) Metabolic bone disease Plan: phos is low, binders on hold phosphorus was replaced (Zunilda Sharpe) Plan patient was seen and examined. To be discharged today. (Bernabe Pearson MD) Zunilda Sharpe June 28, 2016 11:16 Bernabe Pearson MD June 28, 2016 14:08
== END 2016-06-28 11:51 | disposition home or self-care (01) ==
LOC: NEPD 20:06 → NEDA 23:10 → NEPGCP 06-27 03:26
PROVIDERS: ADMIT Internal Medicine; ATTEND Internal Medicine
DX: R07.2 Precordial pain (principal); R06.02 Shortness of breath; I12.0 Hypertensive chronic kidney disease with stage 5 chronic kidney disease or end stage renal disease; N18.6 End stage renal disease; E11.22 Type 2 diabetes mellitus with diabetic chronic kidney disease; F17.200 Nicotine dependence, unspecified, uncomplicated; E88.89 Other specified metabolic disorders; Z99.2 Dependence on renal dialysis; Z88.8 Allergy status to other drugs, medicaments and biological substances
CPT/HCPCS: 71010; 80048; 80053; 82550; 82552; 82948; 83690; 83735; 84100; 84484; 85025; 85610; 85730; 87641; 90935; 93005; 96374; 99285; G0378; J0360; J1815; G0257

== ENCOUNTER 2016-11-21 15:04 | Emergency (ER) | payer MEDICAID ==
[~2016-11-21] VITALS: Ht 165.1 cm; Wt 56.9 kg
[~2016-11-21 15:04] MED LIST changes: -HYDR-3533 PO
[2016-11-21 15:05] VITALS: BP 117/73; PULSE 78; RESP 16; TEMP 99; O2SAT 96
--- NOTE | 2016-11-21 16:24 | RADRPT ---
EXAM DATE/TIME: 11/21/2016 15:39 [place] COMPARISON: CHEST SINGLE AP, June 26, 2016, 21:25. INDICATIONS : Left anterior chest pain MEDICAL HISTORY : Hypertension. Renal failure. SURGICAL HISTORY : Hernia repair. Left arm AV fistula. ENCOUNTER: Initial ACUITY: 1 day PAIN SCORE: 8/10 LOCATION: Left chest FINDINGS: PA and lateral views of the chest demonstrate the lungs to be symmetrically aerated without evidence of mass, infiltrate or effusion. The cardiomediastinal contours are unremarkable. Osseous structure s are intact. CONCLUSION: 1. No acute cardiopulmonary findings. Saran Egan MD on November 21, 2016 at 16:22 Board Certified Radiologist. This report was verified electronically.
[2016-11-21 17:14] LABS: INTERNATIONAL NORMALIZED RATIO 1.1 RATIO; PROTHROMBIN TIME - PATIENT 11.9 SEC (9.8-11.6)
[2016-11-21 17:20] LABS: AUTOMATED NEUTROPHIL # 5.3 TH/MM3 (1.8-7.7); BASOPHIL % 0.6 % (0.0-2.0); EOSINOPHIL # 0.2 TH/MM3 (0-0.4); HEMATOCRIT 41.3 % (39.0-51.0); HEMO FLAGS DIFF FINAL; LYMPH % 20.2 % (9.0-44.0); LYMPHOCYTE # 1.6 TH/MM3 (1.0-4.8); MEAN CORPUSCULAR HEMOGLOBIN 31.1 PG (27.0-34.0); MEAN CORPUSCULAR HGB CONC 33.7 % (32.0-36.0); MONO % 8.6 % (0.0-8.0); NEUT % 68.6 % (16.0-70.0); PLATELET COUNT 212 TH/MM3 (150-450); RED BLOOD COUNT 4.48 MIL/MM3 (4.50-5.90); RED CELL DISTRIBUTION WIDTH 13.9 % (11.6-17.2); WHITE BLOOD COUNT 7.8 TH/MM3 (4.0-11.0)
[2016-11-21 17:28] LABS: ANION GAP 7 MEQ/L (5-15); BICARBONATE 28.2 MEQ/L (21.0-32.0); BLOOD UREA NITROGEN 18 MG/DL (7-18); CHLORIDE 106 MEQ/L (98-107); GLOMERULAR FILTRATION RATE 26 ML/MIN (>89); POTASSIUM 3.9 MEQ/L (3.5-5.1); SODIUM (NA) 141 MEQ/L (136-145)
[2016-11-21] MEDS ORDERED: oxyCODONE/ACETAMINOPHEN 5 MG/325 MG TAB PO ONE (17:30)
[2016-11-21] MEDS ORDERED: LORazepam 2 MG/ML VIAL IV PUSH ONE (17:30)
[2016-11-21 17:31] LABS: CREATINE KINASE 247 U/L (39-308)
--- NOTE | 2016-11-21 17:39 | PD ---
HPI Chief Complaint: Chest Pain Time Seen by Provider: 17:26 Travel History International Travel<30 days: No Contact w/Intl Traveler<30days: No Traveled to known affect area: No History of Present Illness HPI 51 yo M attended HD today, T/R/Sat, and after leaving had chest pain, back pain and muscle spasms in L hand. No dyspnea. No fever. Onset somewhat sudden. Timing constant. No modifying factor. PFSH Past Medical History Hx Anticoagulant Therapy: No Arthritis: No Asthma: No Autoimmune Disease: No Blood Disorders: No Anxiety: No Depression: No Heart Rhythm Problems: No Cancer: No Cardiovascular Problems: Yes High Cholesterol: No Chemotherapy: No Chest Pain: Yes ( ) Congestive Heart Failure: No COPD: No Cerebrovascular Accident: No Diabetes: No Dialysis: Yes (FRIDAY, FRIDAY AND FRIDAY) Diminished Hearing: No Endocrine: No Gastrointestinal Disorders: No GERD: No Glaucoma: No Genitourinary: Yes (renal failure) Headaches: No Hepatitis: No Hiatal Hernia: No Hypertension: Yes Immune Disorder: No Implanted Vascular Access Dvce: Yes Kidney Stones: No Musculoskeletal: No Neurologic: No Psychiatric: No Reproductive: No Respiratory: No Immunizations Current: Yes Migraines: No Myocardial Infarction: No Radiation Therapy: No Renal Failure: Yes Seizures: No Sickle Cell Disease: No Sleep Apnea: No Thyroid Disease: No Ulcer: No Past Surgical History Abdominal Surgery: Yes (HERNIA REPAIR) AICD: No Arteriovenous Shunt: No Body Medical Devices: FISTULA Cardiac Surgery: No Ear Surgery: No Endocrine Surgery: No Eye Surgery: No Genitourinary Surgery: No Gynecologic Surgery: No Insulin Pump: No Joint Replacement: No Neurologic Surgery: No Oral Surgery: No Pacemaker: No Other Surgery: Yes (LEFT ARM FISTULA) Social History Alcohol Use: Yes (RARE) Tobacco Use: Yes (1/2 PACK) Substance Use: No Allergies-Medications (Allergen,Severity, Reaction): Coded Allergies: *MDRO Multi-Drug Resistant Organism (Verified Adverse Reaction, Unknown, ) MRSA PCR Screen POSITIVE - 06/27/2016 MRSA (arm) - 08/2003 Reported Meds & Prescriptions Reported Meds & Active Scripts Active Lortab (Hydrocodone-Acetaminophen) 5-325 Mg Tab 1-2 Tab PO Q6H PRN Reported Hydralazine HCl 25 Mg Tablet 50 Mg PO TID Omeprazole 20 Mg Tab 20 Mg PO DAILY Nephro-Emmanuel (B-Complex W/ C & Folic Acid) 1 Tab 1 Tab PO DAILY Labetalol (Labetalol HCl) 200 Mg Tab 200 Mg PO BID Cozaar (Losartan Potassium) 50 Mg Tab 50 Mg PO DAILY Review of Systems Except as stated in HPI: all other systems reviewed are Neg Physical Exam Narrative GENERAL: 51 yo M, no acute distress SKIN: Warm and dry. HEAD: Atraumatic. Normocephalic. EYES: Pupils equal and round. No scleral icterus. No injection or drainage. ENT: No nasal bleeding or discharge. Mucous membranes pink and moist. NECK: Trachea midline. No JVD. CARDIOVASCULAR: Regular rate and rhythm. RESPIRATORY: No accessory muscle use. Clear to auscultation. Breath sounds equal bilaterally. GASTROINTESTINAL: Abdomen soft, non-tender, nondistended. Hepatic and splenic margins not palpable. MUSCULOSKELETAL: Extremities without clubbing, cyanosis, or edema. No obvious deformities. AV fistula arm. NEUROLOGICAL: Awake and alert. No obvious cranial nerve deficits. Motor grossly within normal limits. Five out of 5 muscle strength in the arms and legs. Normal speech. PSYCHIATRIC: Appropriate mood and affect; insight and judgment normal. Data Data Last Documented VS Vital Signs Date Time Temp Pulse Resp B/P (MAP) Pulse Ox O2 Delivery O2 Flow Rate FiO2 11/21/16 19:31 11/21/16 17:59 77 13 99 Room Air 11/21/16 15:05 99.0 VS reviewed Orders Orders Electrocardiogram (11/21/16 15:29) Complete Blood Count With Diff (11/21/16 15:29) Basic Metabolic Panel (Bmp) (11/21/16 15:29) Ckmb (Isoenzyme) Profile (11/21/16 15:29) Troponin I (11/21/16 15:29) Iv Access Insert/Monitor (11/21/16 15:29) Ecg Monitoring (11/21/16 15:29) Oxygen Administration (11/21/16 15:29) Oximetry (11/21/16 15:29) Prothrombin Time / Inr (Pt) (11/21/16 15:29) Chest, Pa & Lat (11/21/16 15:29) Lorazepam Inj (Ativan Inj) (11/21/16 17:30) Oxycodone-Acetamin 5-325 Mg (Percocet (11/21/16 17:30) CKMB (11/21/16 16:04) CKMB% (11/21/16 16:04) Lorazepam (Ativan) (11/21/16 18:15) Labs Laboratory Tests Test 11/21/16 16:04 White Blood Count 7.8 TH/MM3 Red Blood Count 4.48 MIL/MM3 Hemoglobin 13.9 GM/DL Hematocrit 41.3 % Mean Corpuscular Volume 92.0 FL Mean Corpuscular Hemoglobin 31.1 PG Mean Corpuscular Hemoglobin Concent 33.7 % Red Cell Distribution Width 13.9 % Platelet Count 212 TH/MM3 Mean Platelet Volume 8.7 FL Neutrophils (%) (Auto) 68.6 % Lymphocytes (%) (Auto) 20.2 % Monocytes (%) (Auto) 8.6 % Eosinophils (%) (Auto) 2.0 % Basophils (%) (Auto) 0.6 % Neutrophils # (Auto) 5.3 TH/MM3 Lymphocytes # (Auto) 1.6 TH/MM3 Monocytes # (Auto) 0.7 TH/MM3 Eosinophils # (Auto) 0.2 TH/MM3 Basophils # (Auto) 0.0 TH/MM3 CBC Comment DIFF FINAL Differential Comment Prothrombin Time 11.9 SEC Prothromb Time International Ratio 1.1 RATIO Blood Urea Nitrogen 18 MG/DL Creatinine 3.09 MG/DL Random Glucose 97 MG/DL Calcium Level 8.7 MG/DL Sodium Level 141 MEQ/L Potassium Level 3.9 MEQ/L Chloride Level 106 MEQ/L Carbon Dioxide Level 28.2 MEQ/L Anion Gap 7 MEQ/L Estimat Glomerular Filtration Rate 26 ML/MIN Total Creatine Kinase 247 U/L Creatine Kinase MB 1.6 NG/ML Troponin I LESS THAN 0.02 NG/ML MDM Medical Decision Making Medical Screen Exam Complete: Yes Emergency Medical Condition: Yes Medical Record Reviewed: Yes Differential Diagnosis electrolyte imbalance, anemia, PTX Narrative Course CBC & BMP Diagram 11/21/16 16:04 Calcium Level 8.7 Tn < 0.02 EKG: Sinus, rate 67, no ischemic injury pattern Last 24 hours Impressions Chest X-Ray 11/21/16 3448 Signed Impressions: Service Date/Time: October 15:39 - CONCLUSION: 1. No acute cardiopulmonary findings. Saran Egan MD Pain controlled. Symptoms likely 2/2 overdiuresis. Diagnosis Primary Impression: Chest pain in adult Additional Impression: ESRD (end stage renal disease) Med/Other Pt SpecificInfo: No Change to Meds Scripts Hydrocodone-Acetaminophen (Lortab) 5-325 Mg Tab 1-2 TAB PO Q6H Y for PAIN SCALE 6 TO 10, #15 TAB 0 Refills Prov: Saran Harry MD 11/21/16 Disposition: 01 DISCHARGE HOME Condition: Stable Saran Harry MD Nov 21, 2016 17:39
[2016-11-21] MEDS ORDERED: HYDR-3533 PO (17:43)
[2016-11-21 17:44] LABS: CKMB 1.6 NG/ML (0.5-3.6)
[2016-11-21 17:54] VITALS: O2SAT 99
[2016-11-21] MEDS ORDERED: HYDR-3799 PO (17:58)
[2016-11-21 17:59] VITALS: BP 139/87; PULSE 77; RESP 13; O2SAT 99
[2016-11-21] MEDS ORDERED: LORazepam 1 MG TAB PO ONE (18:15)
--- NOTE | 2016-11-22 10:27 | EKG ---
Date Performed: 11/21/2016 Time Performed: 15:52:37 PTAGE: 51 years EKG: Sinus rhythm POSSIBLE LEFT ATRIAL ENLARGEMENT LEFT VENTRICULAR HYPERTROPHY AND ST-T CHANGE ABNORMAL ECG PREVIOUS TRACING : 06/27/2016 03.14 Compared to prior tracing no significant change DOCTOR: Beka Hastings Interpretating Date/Time 11/22/2016 10:21:16
== END 2016-11-21 19:35 | disposition home or self-care (01) ==
LOC: NEPC 15:04
DX: R07.9 Chest pain, unspecified (principal); N18.6 End stage renal disease; M54.9 Dorsalgia, unspecified; R94.31 Abnormal electrocardiogram [ECG] [EKG]; I10 Essential (primary) hypertension; Z72.0 Tobacco use; Z99.2 Dependence on renal dialysis
CPT/HCPCS: 71020; 80048; 82550; 82552; 84484; 85025; 85610; 93005; 99285

== ENCOUNTER 2017-02-22 09:14 | Emergency (ER) | payer MEDICAID ==
[~2017-02-22] VITALS: Ht 166.4 cm; Wt 61.2 kg
[~2017-02-22 09:14] MED LIST changes: +HYDR-3533 PO; +HYDR-3799 PO; -HYDR50TA15 PO; -OMEP20TA PO; +OMEP20TA93 PO
[2017-02-22 09:22] VITALS: BP 123/71; PULSE 86; RESP 20; TEMP 99.1; O2SAT 96
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
[2017-02-22] MEDS ORDERED: ONDANSETRON HCL 4 MG/2 ML VIAL IV PUSH ONE (09:45)
[2017-02-22] MEDS ORDERED: MORPHINE SULFATE 2 MG/ML INJ IV PUSH ONE (09:45)
[2017-02-22 10:02] LABS: AUTOMATED NEUTROPHIL # 6.5 TH/MM3 (1.8-7.7); BASOPHIL # 0.1 TH/MM3 (0-0.2); BASOPHIL % 0.9 % (0.0-2.0); EOSINOPHIL # 0.1 TH/MM3 (0-0.4); HEMATOCRIT 36.2 % (39.0-51.0); HEMOGLOBIN 13.2 GM/DL (13.0-17.0); LYMPH % 20.5 % (9.0-44.0); MEAN CELL VOLUME 90.7 FL (80.0-100.0); MEAN CORPUSCULAR HEMOGLOBIN 33.1 PG (27.0-34.0); MEAN PLATELET VOLUME 8.2 FL (7.0-11.0); MONOCYTE # 1.1 TH/MM3 (0-0.9); NEUT % 66.6 % (16.0-70.0); PLATELET COUNT 245 TH/MM3 (150-450); RED BLOOD COUNT 3.99 MIL/MM3 (4.50-5.90); RED CELL DISTRIBUTION WIDTH 13.4 % (11.6-17.2); WHITE BLOOD COUNT 9.7 TH/MM3 (4.0-11.0)
[2017-02-22 10:07] LABS: MEAN CORPUSCULAR HGB CONC 36.5 % (32.0-36.0)
--- NOTE | 2017-02-22 10:14 | RADRPT ---
EXAM DATE/TIME: 02/22/2017 09:39 [facility] COMPARISON: No previous studies available for comparison. INDICATIONS : Left arm pain following dialysis. MEDICAL HISTORY : Hypertension. Gastroesophageal reflux disease. Left arm pain following dialysis. Renal failure. SURGICAL HISTORY : Left arm AV fistula. Dialysis. Hernia repair. ENCOUNTER: Initial ACUITY: 1 day PAIN SCORE: 8/10 LOCATION: Left arm. AREA EVALUATED: Left arm, area of AV fistula. FINDINGS: The AV fistula in the left arm is patent. It measures up to 1.8 cm in diameter. There is a 2.1 x 4.0 x 0.6 cm hypoechoic area seen superficial to the fistula. This is separate from the fistula. It could represent an adjacent hematoma. This does not demonstrate any increased flow. CONCLUSION: The AV fistula is patent. There is a oval hypoechoic area seen superficial to the fistula which could represent a hematoma. Mickey Arreola MD on February 22, 2017 at 10:07 Board Certified Radiologist. This report was verified electronically.
[2017-02-22 10:25] LABS: BICARBONATE 31.2 MEQ/L (21.0-32.0); CALCIUM 8.3 MG/DL (8.5-10.1); CREATININE 1.99 MG/DL (0.60-1.30)
[2017-02-22] MEDS ORDERED: NORC5TAB PO (11:15)
[2017-02-22] MEDS ORDERED: CYCL10TA PO (11:58)
[2017-02-22 12:00] VITALS: BP 134/71
== END 2017-02-22 12:05 | disposition home or self-care (01) ==
LOC: NEPE 09:14
DX: M79.622 Pain in left upper arm (principal); M54.5 Low back pain; G89.29 Other chronic pain; F17.200 Nicotine dependence, unspecified, uncomplicated; I12.0 Hypertensive chronic kidney disease with stage 5 chronic kidney disease or end stage renal disease; N18.6 End stage renal disease; Z99.2 Dependence on renal dialysis
CPT/HCPCS: 80048; 85025; 93931; 96374; 96375; 99284; J2270; J2405

== ENCOUNTER 2017-05-15 13:22 | Emergency (ER) | payer MEDICAID ==
[~2017-05-15] VITALS: Ht 165.1 cm; Wt 75.0 kg
[~2017-05-15 13:22] MED LIST changes: +CYCL10TA PO; -HYDR-3533 PO; +NORC5TAB PO
[2017-05-15 13:30] VITALS: BP 152/91; PULSE 79; RESP 16; TEMP 97.7; O2SAT 97
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
[2017-05-15 14:07] VITALS: BP 157/94; PULSE 81; RESP 18; O2SAT 99
[2017-05-15] MEDS ORDERED: NEPHTAB3 PO (14:11)
[2017-05-15] MEDS ORDERED: COZA50TA PO (14:11)
[2017-05-15] MEDS ORDERED: LABE200T2 PO (14:11)
[2017-05-15] MEDS ORDERED: OMEP20TA93 PO (14:11)
[2017-05-15] MEDS ORDERED: HYDR-3800 PO (14:11)
--- NOTE | 2017-05-16 19:50 | EKG ---
Date Performed: 05/15/2017 Time Performed: 13:36:21 PTAGE: 51 years EKG: Sinus rhythm POSSIBLE LEFT ATRIAL ENLARGEMENT LEFT VENTRICULAR HYPERTROPHY AND ST-T CHANGE Since previous tracing , no significant change noted ABNORMAL ECG PREVIOUS TRACING : 05/10/2017 05.25 DOCTOR: Kj Peres Interpretating Date/Time 05/16/2017 19:49:02
== END 2017-05-15 14:29 | disposition home or self-care (01) ==
LOC: NEPE 13:22
DX: I12.0 Hypertensive chronic kidney disease with stage 5 chronic kidney disease or end stage renal disease (principal); N18.6 End stage renal disease; F17.200 Nicotine dependence, unspecified, uncomplicated; Z99.2 Dependence on renal dialysis
CPT/HCPCS: 93005

== ENCOUNTER 2017-05-30 19:02 | Observation (INO) | payer MEDICAID ==
[~2017-05-30] VITALS: Ht 165.1 cm; Wt 65.0 kg
[~2017-05-30 19:02] MED LIST changes: -CYCL10TA PO; -HYDR-3799 PO; +HYDR-3800 PO; -NORC5TAB PO
[2017-05-30 19:12] VITALS: BP 162/88; PULSE 85; RESP 16; TEMP 98.4; O2SAT 96
[2017-05-30 20:58] VITALS: BP 158/93; PULSE 81; RESP 20; O2SAT 96
[2017-05-30] MEDS ORDERED: ACETAMINOPHEN 325 MG TAB PO ONE (21:30)
--- NOTE | 2017-05-30 21:43 | RADRPT ---
EXAM DATE/TIME: 05/30/2017 21:25 [facility] COMPARISON: CHEST PA & LAT, November 21, 2016, 15:39. INDICATIONS : Shortness of breath and chest pain. MEDICAL HISTORY : Hypertension. SURGICAL HISTORY : None. ENCOUNTER: Initial ACUITY: 1 day PAIN SCORE: 8/10 LOCATION: Bilateral chest FINDINGS: There is increasing interstitial edema suggesting fluid overload. There is no pleural effusion. The re is no pneumothorax. The portion of the bony skeleton visualized is unremarkable. CONCLUSION: Increasing interstitial changes suggesting an Tae Egan MD FACR on May 30, 2017 at 21:40 Board Certified Radiologist. This report was verified electronically.
--- NOTE | 2017-05-30 22:03 | PD ---
HPI Chief Complaint: Respiratory Symptoms Time Seen by Provider: 20:39 Travel History International Travel<30 days: No Contact w/Intl Traveler<30days: No Traveled to known affect area: No History of Present Illness HPI Patient is a 51-year-old male end-stage renal disease who got dialyzed Friday he got his full-time in the machine he said 3 hours they took off the same amount of fluid and he is now stooling short of breath he has a sore throat submental lymphadenopathy and he also says he just feels like he has the flu patient denies chest pain but he does feel short of breath. Patient has an AV fistula and there is no complication with that he does report that prior to dialysis yesterday his pressure was over 200 systolic and even after dialysis when I took the fluid off he still was hypertensive patients coming in complaining shortness of breath sore throat generalized malaise body aches flulike feeling started last night and continues today here in the ER he did not take anything for his symptoms. Patient makes a small amount of urine still but he is fluid restricted patient is awake alert and afebrile at triage [facility] Past Medical History Hx Anticoagulant Therapy: No Arthritis: No Asthma: No Autoimmune Disease: No Blood Disorders: No Anxiety: No Depression: No Heart Rhythm Problems: No Cancer: No Cardiovascular Problems: Yes High Cholesterol: No Chemotherapy: No Chest Pain: Yes ( ) Congestive Heart Failure: No COPD: No Cerebrovascular Accident: No Diabetes: No Dialysis: Yes (FRIDAY, FRIDAY AND FRIDAY) Diminished Hearing: No Endocrine: No Gastrointestinal Disorders: No GERD: Yes Glaucoma: No Genitourinary: Yes (renal failure) Headaches: No Hepatitis: No Hiatal Hernia: No Hypertension: Yes Immune Disorder: No Implanted Vascular Access Dvce: Yes Kidney Stones: No Musculoskeletal: No Neurologic: No Psychiatric: No Reproductive: No Respiratory: No Immunizations Current: Yes Migraines: No Myocardial Infarction: No Radiation Therapy: No Renal Failure: Yes Seizures: No Sickle Cell Disease: No Sleep Apnea: No Thyroid Disease: No Ulcer: No Past Surgical History Abdominal Surgery: Yes (HERNIA REPAIR) AICD: No Arteriovenous Shunt: No Body Medical Devices: FISTULA Cardiac Surgery: No Ear Surgery: No Endocrine Surgery: No Eye Surgery: No Genitourinary Surgery: No Gynecologic Surgery: No Insulin Pump: No Joint Replacement: No Neurologic Surgery: No Oral Surgery: No Pacemaker: No Other Surgery: Yes (LEFT ARM FISTULA) Social History Alcohol Use: No Tobacco Use: Yes (1ppd) Substance Use: No Allergies-Medications Reported Meds & Prescriptions Reported Meds & Active Scripts Active Reported Omeprazole 20 Mg Tab 20 Mg PO DAILY Cozaar (Losartan Potassium) 50 Mg Tab 50 Mg PO DAILY Labetalol (Labetalol HCl) 200 Mg Tab 200 Mg PO BID Hydralazine HCl 50 Mg Tablet 50 Mg PO TID Nephro-Emmanuel (B-Complex W/ C & Folic Acid) 1 Tab 1 Tab PO DAILY Review of Systems Except as stated in HPI: all other systems reviewed are Neg General / Constitutional: Positive: Chills HENT: Positive: Sore Throat, Neck Pain Respiratory: Positive: Cough, Shortness of Breath Physical Exam Narrative GENERAL: Patient is awake alert nontoxic-appearing SKIN: Warm and dry. HEAD: Atraumatic. Normocephalic. EYES: Pupils equal and round. No scleral icterus. No injection or drainage. ENT: No nasal bleeding or discharge. Mucous membranes pink and moist. NECK: Trachea midline. No JVD. CARDIOVASCULAR: Regular rate and rhythm. RESPIRATORY: No accessory muscle use. Clear to auscultation. Breath sounds equal bilaterally. There is no rales the bases of his lungs they are clear GASTROINTESTINAL: Abdomen soft, non-tender, nondistended. Hepatic and splenic margins not palpable. MUSCULOSKELETAL: Extremities without clubbing, cyanosis, or edema. No obvious deformities. NEUROLOGICAL: Awake and alert. No obvious cranial nerve deficits. Motor grossly within normal limits. Five out of 5 muscle strength in the arms and legs. Normal speech. PSYCHIATRIC: Appropriate mood and affect; insight and judgment normal. Data Data Last Documented VS Vital Signs Date Time Temp Pulse Resp B/P (MAP) Pulse Ox O2 Delivery O2 Flow Rate FiO2 05/30/17 20:58 81 20 158/93 (114) 96 Room Air 05/30/17 19:12 98.4 Orders Orders Influenzae A/B Antigen (05/30/17 21:06) Group A Rapid Strep Screen (05/30/17 21:06) Chest, Pa & Lat (05/30/17 ) Acetaminophen (Tylenol) (05/30/17 21:30) Complete Blood Count With Diff (05/30/17 21:59) Comprehensive Metabolic Panel (05/30/17 21:59) Troponin I (05/30/17 21:59) Lipase (05/30/17 21:59) Furosemide Inj (Lasix Inj) (05/30/17 22:15) Nitroglycerin 2% Oint (Nitroglycerin 2% (05/30/17 22:15) Strep Culture (Group A) (05/30/17 21:40) Admit Order (Ed Use Only) (05/30/17 22:58) Consult Nephrology (05/30/17 ) Labs Laboratory Tests Test 05/30/17 20:10 White Blood Count 7.6 TH/MM3 Red Blood Count 3.96 MIL/MM3 Hemoglobin 12.1 GM/DL Hematocrit 36.8 % Mean Corpuscular Volume 93.0 FL Mean Corpuscular Hemoglobin 30.5 PG Mean Corpuscular Hemoglobin Concent 32.8 % Red Cell Distribution Width 14.4 % Platelet Count 200 TH/MM3 Mean Platelet Volume 9.2 FL Neutrophils (%) (Auto) 65.4 % Lymphocytes (%) (Auto) 18.2 % Monocytes (%) (Auto) 14.2 % Eosinophils (%) (Auto) 1.7 % Basophils (%) (Auto) 0.5 % Neutrophils # (Auto) 4.9 TH/MM3 Lymphocytes # (Auto) 1.4 TH/MM3 Monocytes # (Auto) 1.1 TH/MM3 Eosinophils # (Auto) 0.1 TH/MM3 Basophils # (Auto) 0.0 TH/MM3 CBC Comment DIFF FINAL Differential Comment Blood Urea Nitrogen 25 MG/DL Creatinine 2.53 MG/DL Random Glucose 118 MG/DL Total Protein 6.3 GM/DL Albumin 3.1 GM/DL Calcium Level 8.4 MG/DL Alkaline Phosphatase 113 U/L Aspartate Amino Transf (AST/SGOT) 22 U/L Alanine Aminotransferase (ALT/SGPT) 26 U/L Total Bilirubin 0.2 MG/DL Sodium Level 144 MEQ/L Potassium Level 4.3 MEQ/L Chloride Level 107 MEQ/L Carbon Dioxide Level 30.9 MEQ/L Anion Gap 6 MEQ/L Estimat Glomerular Filtration Rate 33 ML/MIN Troponin I LESS THAN 0.02 NG/ML Lipase 326 U/L MDM Medical Decision Making Medical Screen Exam Complete: Yes Emergency Medical Condition: Yes Differential Diagnosis Frontal diagnosis includes viral syndrome versus fluid overload versus pulmonary edema versus bronchitis versus influenza Narrative Course pt has CXR that shows fluid overload I give Nitro paste and Lasix IV 20 mg to temporize the fluid overload and lower his afterload and diurese until AM dialysis available urgent but no emergent dialysis needed His Nephologist Dr Moses will be called consult placed Diagnosis Primary Impression: Fluid overload Qualified Codes: E87.70 - Fluid overload, unspecified Additional Impression: ESRD (end stage renal disease) on dialysis Scripts Fluticasone Nasal Etoile (Fluticasone Nasal Etoile) 50 Mcg/Act Naspr 1 SPRAY NASAL BID for nasal congestion, #2 BOTTLE 50 mcg/spray Prov: Damir Hernandez MD 06/01/17 Dextromethorphan-Guaifenesin (Dextromethorphan/Guaifene 10-100 mg/5Ml) 100 Mg- 10 Mg/5 Ml Syp 10 ML PO Q6H Y for COUGH, #1 BOTTLE Prov: Damir Hernandez MD 06/01/17 Jerome Beyer MD May 30, 2017 22:03
[2017-05-30] MEDS ORDERED: FUROSEMIDE 20 MG/2 ML VIAL IV PUSH ONE (22:15)
[2017-05-30] MEDS ORDERED: NITROGLYCERIN 2% OINT 1 GM PACKET TOPICAL ONE (22:15)
[2017-05-30 22:34] LABS: AUTOMATED NEUTROPHIL # 4.9 TH/MM3 (1.8-7.7); BASOPHIL % 0.5 % (0.0-2.0); EOSINOPHIL # 0.1 TH/MM3 (0-0.4); EOSINOPHIL % 1.7 % (0.0-4.0); HEMATOCRIT 36.8 % (39.0-51.0); HEMOGLOBIN 12.1 GM/DL (13.0-17.0); LYMPH % 18.2 % (9.0-44.0); LYMPHOCYTE # 1.4 TH/MM3 (1.0-4.8); MEAN CORPUSCULAR HEMOGLOBIN 30.5 PG (27.0-34.0); MEAN CORPUSCULAR HGB CONC 32.8 % (32.0-36.0); MEAN PLATELET VOLUME 9.2 FL (7.0-11.0); MONO % 14.2 % (0.0-8.0); MONOCYTE # 1.1 TH/MM3 (0-0.9); NEUT % 65.4 % (16.0-70.0); PLATELET COUNT 200 TH/MM3 (150-450); RED BLOOD COUNT 3.96 MIL/MM3 (4.50-5.90); RED CELL DISTRIBUTION WIDTH 14.4 % (11.6-17.2); WHITE BLOOD COUNT 7.6 TH/MM3 (4.0-11.0)
[2017-05-30 22:53] LABS: ALBUMIN 3.1 GM/DL (3.4-5.0); AST (GOT) 22 U/L (15-37); BICARBONATE 30.9 MEQ/L (21.0-32.0); BLOOD UREA NITROGEN 25 MG/DL (7-18); CALCIUM 8.4 MG/DL (8.5-10.1); CHLORIDE 107 MEQ/L (98-107); CREATININE 2.53 MG/DL (0.60-1.30); GLOMERULAR FILTRATION RATE 33 ML/MIN (>89); GLUCOSE,RANDOM 118 MG/DL (74-106); SODIUM (NA) 144 MEQ/L (136-145)
[2017-05-30 22:57] LABS: ALKALINE PHOSPHATASE 113 U/L (45-117); ALT (GPT) 26 U/L (12-78); TOTAL BILIRUBIN ADULT 0.2 MG/DL (0.2-1.0); TOTAL PROTEIN 6.3 GM/DL (6.4-8.2); TROPONIN I LESS THAN 0.02 NG/ML (0.02-0.05)
[2017-05-30] MEDS ORDERED: BISACODYL 10 MG SUPP RECTAL PRN (23:15)
[2017-05-30] MEDS ORDERED: MAGNESIUM HYDROXIDE SUSP 30 ML CUP PO PRN (23:15)
[2017-05-30] MEDS ORDERED: ACETAMINOPHEN 325 MG TAB PO PRN (23:15)
[2017-05-30] MEDS ORDERED: ACETAMINOPHEN/HYDROcodone 325 MG/10 MG TAB PO PRN (23:15)
[2017-05-30] MEDS ORDERED: SODIUM CHLORIDE 0.9% FLUSH 10 ML FLUSH IV FLUSH PRN (23:15)
[2017-05-30] MEDS ORDERED: SENNOSIDES 8.6 MG TAB PO PRN (23:15)
[2017-05-30] MEDS ORDERED: ONDANSETRON HCL 4 MG/2 ML VIAL IVP PRN (23:15)
[2017-05-30] MEDS ORDERED: LACTULOSE SYRUP 20 GM/30 ML CUP PO PRN (23:15)
[2017-05-30] MEDS ORDERED: ACETAMINOPHEN/HYDROcodone 325 MG/5 MG TAB PO PRN (23:15)
[2017-05-30 23:18] VITALS: BP 150/81; PULSE 79; RESP 18; O2SAT 97
[2017-05-31] VITALS (10 sets, daily range): BP systolic 128–192; BP diastolic 70–110; PULSE 68–93; RESP 16–18; TEMP 96.3–98.7; O2SAT 95–98
--- NOTE | 2017-05-31 01:16 | HHI.HP ---
[facility] Or[facility] DO Admission Diagnosis Fluid overload Diagnoses: (1) Fluid overload Diagnosis: Principal (2) ESRD (end stage renal disease) Diagnosis: Principal (3) Generalized weakness Diagnosis: Principal (4) HTN (hypertension) Diagnosis: Principal Travel History International Travel<30 Days: No Contact w/Intl Traveler <30 Da: No Traveled to Known Affected Are: No History of Present Illness This is a 51-year-old male with a PMH of HTN, CHF (Echo 10/09/2012 w/ EF 55-60%) , h/o Cocaine Abuse and ESRD on who presented to the ER w/ complaints of SOB and generalized weakness. Reports associated sore throat, but no fever, chills, chest pain, nausea, vomiting or diarrhea. Had HD on w/ no complications. On arrival, BP 162/88, HR 85, O2 sat 96% RA, Afebrile. CBC essentially at baseline. Creatinine 2.53, previously 1.99 on 02/22/2017. CXR with increasing interstitial changes suggesting fluid overload. S/p Lasix in ER. Review of Systems Except as stated in HPI: all other systems reviewed are Neg ROS: 14 point review of systems otherwise negative. Past Family Social History Past Medical History PMH: HTN, CHF (Echo 10/09/2012 w/ EF 55-60%), h/o Cocaine Abuse and ESRD on Past Surgical History PAST SURGICAL HISTORY: Hernia Repair, LUE AV Fistula Allergies: Coded Allergies: *MDRO Multi-Drug Resistant Organism (Verified Adverse Reaction, Unknown, ) MRSA PCR Screen POSITIVE - 06/27/2016 MRSA (arm) - 08/2003 Family History PAST FAMILY HISTORY: Reviewed. No h/o DM or CAD Social History PAST SOCIAL HISTORY: Negative for alcohol. Smokes 1ppd. H/o Cocaine, denies recent use. Physical Exam Vital Signs Vital Signs Date Time Temp Pulse Resp B/P (MAP) Pulse Ox O2 Delivery O2 Flow Rate FiO2 05/31/17 00:38 85 05/31/17 00:23 96.3 81 16 163/92 (115) 98 05/30/17 23:31 05/30/17 23:18 79 18 150/81 (104) 97 Room Air 05/30/17 20:58 81 20 158/93 (114) 96 Room Air 05/30/17 19:12 98.4 85 16 162/88 (112) 96 Physical Exam PE: GENERAL: Middle-aged black male in no acute distress, resting comfortably. HEENT: PERRLA, EOMI. No scleral icterus or conjunctival pallor. No lid lag or facial droop. CARDIOVASCULAR: Regular rate and rhythm. No obvious murmurs to auscultation. No chest tenderness to palpation. RESPIRATORY: No obvious rhonchi or wheezing. Clear to auscultation. Breath sounds equal bilaterally. GASTROINTESTINAL: Abdomen soft, non-tender, nondistended. BS normal. MUSCULOSKELETAL: Extremities without clubbing, cyanosis, or edema. No obvious deformities. LUE AV Fistula NEUROLOGICAL: Awake, alert and oriented x4. No focal neurologic deficits. Moving both upper and lower extremities spontaneously. Laboratory Laboratory Tests Test 05/30/17 20:10 White Blood Count 7.6 Red Blood Count 3.96 Hemoglobin 12.1 Hematocrit 36.8 Mean Corpuscular Volume 93.0 Mean Corpuscular Hemoglobin 30.5 Mean Corpuscular Hemoglobin Concent 32.8 Red Cell Distribution Width 14.4 Platelet Count 200 Mean Platelet Volume 9.2 Neutrophils (%) (Auto) 65.4 Lymphocytes (%) (Auto) 18.2 Monocytes (%) (Auto) 14.2 Eosinophils (%) (Auto) 1.7 Basophils (%) (Auto) 0.5 Neutrophils # (Auto) 4.9 Lymphocytes # (Auto) 1.4 Monocytes # (Auto) 1.1 Eosinophils # (Auto) 0.1 Basophils # (Auto) 0.0 CBC Comment DIFF FINAL Differential Comment Blood Urea Nitrogen 25 Creatinine 2.53 Random Glucose 118 Total Protein 6.3 Albumin 3.1 Calcium Level 8.4 Alkaline Phosphatase 113 Aspartate Amino Transf (AST/SGOT) 22 Alanine Aminotransferase (ALT/SGPT) 26 Total Bilirubin 0.2 Sodium Level 144 Potassium Level 4.3 Chloride Level 107 Carbon Dioxide Level 30.9 Anion Gap 6 Estimat Glomerular Filtration Rate 33 Troponin I LESS THAN 0.02 Lipase 326 Date/Time Source Procedure Growth Status 05/30/17 21:40 Throat Group A Streptococcus Screen Pending Received Result Diagram: 05/30/17200905/30/172009 Caprinirineo VTE Risk Assessment Caprinirineo VTE Risk Assessment: No/Low Risk (score <= 1) Caprini Risk Assessment Model Point Value = 1 Point Value = 2 Point Value = 3 Point Value = 5 Age 41-60 Minor surgery BMI > 25 kg/m2 Swollen legs Varicose veins or History of unexplained or recurrent spontaneous Oral contraceptives or hormone replacement Sepsis (< 1 month) Serious lung disease, including pneumonia (< 1 month) Abnormal pulmonary function Acute myocardial infarction Congestive heart failure (< 1 month) History of inflammatory bowel disease Medical patient at bed rest Age 61-74 Arthroscopic surgery Major open surgery (> 45 min) Laparoscopic surgery (> 45 min) Malignancy Confined to bed (> 72 hours) Immobilizing plaster cast Central venous access Age >= 75 History of VTE Family history of VTE Factor V Leiden Prothrombin [id number] Lupus anticoagulant Anticardiolipin antibodies Elevated serum homocysteine Heparin-induced thrombocytopenia Other congenital or acquired thrombophilia Stroke (< 1 month) Elective arthroplasty Hip, pelvis, or leg fracture Acute spinal cord injury (< 1 month) Prophylaxis Regimen Total Risk Factor Score Risk Level Prophylaxis Regimen 0-1 Low Early ambulation 2 Moderate Order ONE of the following: *Sequential Compression Device (SCD) *Heparin 5000 units SQ BID 3-4 Higher Order ONE of the following medications: *Heparin 5000 units SQ TID *Enoxaparin/Lovenox 40 mg SQ daily (WT < 150 kg, CrCl > 30 mL/min) *Enoxaparin/Lovenox 30 mg SQ daily (WT < 150 kg, CrCl > 10-29 mL/min) *Enoxaparin/Lovenox 30 mg SQ BID (WT < 150 kg, CrCl > 30 mL/min) AND/OR *Sequential Compression Device (SCD) 5 or more Highest Order ONE of the following medications: *Heparin 5000 units SQ TID (Preferred with Epidurals) *Enoxaparin/Lovenox 40 mg SQ daily (WT < 150 kg, CrCl > 30 mL/min) *Enoxaparin/Lovenox 30 mg SQ daily (WT < 150 kg, CrCl > 10-29 mL/min) *Enoxaparin/Lovenox 30 mg SQ BID (WT < 150 kg, CrCl > 30 mL/min) AND *Sequential Compression Device (SCD) Assessment and Plan Problem List: (1) Fluid overload ICD Code: E87.70 - Fluid overload, unspecified (2) ESRD (end stage renal disease) ICD Code: N18.6 - End-stage renal disease Status: Chronic (3) Generalized weakness ICD Code: R53.1 - Weakness (4) HTN (hypertension) ICD Code: I10 - Essential (primary) hypertension Assessment and Plan A/P: 1. Fluid Overload: likely combination of CHF and ESRD, CXR w/ interstitial edema, images reviewed by me. S/p Lasix in ER, monitor I/O. SOB improved, but not resolved. 2. ESRD on HD: T//Fri, follows w/ Dr. Moses as outpatient, will consult to resume HD in am secondary to fluid overload and SOB 3. HTN: Uncontrolled. BP 150-160's systolic, resume home medications, monitor BP 4. Generalized Weakness: likely due to above, will re-eval following HD. PT for eval/tx 5. DVT Prophylaxis: Heparin sq 6. Social work for d/c planning as needed. 7. Case discussed w/ ER physician at length, labs/records/imaging reviewed by me. Loretta Santillan MD May 31, 2017 01:16
[2017-05-31] MEDS ORDERED: cloNIDine HCL 0.1 MG TAB PO ONE (05:00)
[2017-05-31] MEDS: LABETALOL HCL 200 MG TAB PO SCH ×2 (06:42→21:19)
[2017-05-31] MEDS: hydrALAZINE HCL 50 MG TAB PO SCH ×3 (06:43→18:19)
[2017-05-31] MEDS: LOSARTAN 50 MG TAB PO SCH (06:43)
[2017-05-31 08:23] LABS: AUTOMATED NEUTROPHIL # 4.8 TH/MM3 (1.8-7.7); BASOPHIL # 0.1 TH/MM3 (0-0.2); BASOPHIL % 0.7 % (0.0-2.0); EOSINOPHIL # 0.1 TH/MM3 (0-0.4); EOSINOPHIL % 1.8 % (0.0-4.0); HEMATOCRIT 36.4 % (39.0-51.0); HEMOGLOBIN 12.2 GM/DL (13.0-17.0); LYMPH % 19.8 % (9.0-44.0); LYMPHOCYTE # 1.5 TH/MM3 (1.0-4.8); MEAN CELL VOLUME 92.4 FL (80.0-100.0); MEAN CORPUSCULAR HGB CONC 33.6 % (32.0-36.0); MEAN PLATELET VOLUME 9.1 FL (7.0-11.0); MONO % 12.3 % (0.0-8.0); MONOCYTE # 0.9 TH/MM3 (0-0.9); NEUT % 65.4 % (16.0-70.0); PLATELET COUNT 179 TH/MM3 (150-450); RED BLOOD COUNT 3.94 MIL/MM3 (4.50-5.90); RED CELL DISTRIBUTION WIDTH 14.1 % (11.6-17.2); WHITE BLOOD COUNT 7.4 TH/MM3 (4.0-11.0)
[2017-05-31 08:47] LABS: AST (GOT) 16 U/L (15-37); BICARBONATE 28.8 MEQ/L (21.0-32.0); BLOOD UREA NITROGEN 24 MG/DL (7-18); CALCIUM 8.5 MG/DL (8.5-10.1); CHLORIDE 108 MEQ/L (98-107); CREATININE 2.47 MG/DL (0.60-1.30); GLOMERULAR FILTRATION RATE 34 ML/MIN (>89); GLUCOSE,RANDOM 88 MG/DL (74-106); SODIUM (NA) 143 MEQ/L (136-145)
[2017-05-31 08:48] LABS: ALT (GPT) 25 U/L (12-78)
[2017-05-31 08:50] LABS: ALKALINE PHOSPHATASE 94 U/L (45-117); TOTAL BILIRUBIN ADULT 0.4 MG/DL (0.2-1.0)
[2017-05-31] MEDS: HEPARIN SODIUM - SQ 10,000 UNITS/ML VIAL SQ SCH ×3 (09:00→21:20)
[2017-05-31] MEDS ORDERED: SODIUM CHLOR 0.9% 1000 ML INJ 1,000 ML IV PRN (09:17)
[2017-05-31] MEDS ORDERED: SODIUM CHLOR 0.9% 1000 ML INJ 1,000 ML OTHER PRN ×2 (09:17)
[2017-05-31] MEDS ORDERED: cloNIDine HCL 0.1 MG TAB PO PRN (09:30)
[2017-05-31] MEDS ORDERED: HEPARIN SODIUM - IV 10,000 UNITS/10 ML VIAL PRN (09:30)
[2017-05-31] MEDS ORDERED: GELATIN 12 MM/7 MM FOAM TOP PRN (09:30)
[2017-05-31] MEDS ORDERED: HEPARIN SODIUM - IV 10,000 UNITS/10 ML VIAL IV FLUSH PRN (09:30)
[2017-05-31] MEDS ORDERED: NITROGLYCERIN 0.4 MG SL 25 TABS/BTL SL PRN (09:30)
[2017-05-31] MEDS ORDERED: SODIUM CHLORIDE 0.9% FLUSH 10 ML FLUSH IV FLUSH PRN (09:30)
[2017-05-31] MEDS ORDERED: ACETAMINOPHEN 325 MG TAB PO PRN (09:30)
[2017-05-31] MEDS ORDERED: ONDANSETRON HCL 4 MG/2 ML VIAL IV PUSH PRN (09:30)
[2017-05-31] MEDS ORDERED: diphenhydrAMINE HCL 25 MG CAP PO PRN (09:30)
[2017-05-31] MEDS ORDERED: GENTAMICIN SULFATE 20 MG/2 ML VIAL OTHER PRN (09:30)
[2017-05-31] MEDS ORDERED: MANNITOL 12.5 GM/50 ML VIAL IV PRN (09:30)
[2017-05-31] MEDS ORDERED: ALBUMIN 25% INJ 100 ML IV PRN (09:30)
--- NOTE | 2017-05-31 11:43 | PD.CONS ---
HPI Service Nephrology Consult Requested By Dr. Santillan Reason for Consult ESRD on HD Primary Care Physician Orlin Hopson, DO History of Present Illness Patient is a 51 year old Black male with ESRD, Cocaine abuse, Hypertension, on hemodialysis, he follows with Dr. Moses, he got short of breath, had cough, tired, c/o sore throat, back pain, asking for pain medications, on HD T,T,S schedule, he is seen during dialysis. Review of Systems Constitutional: COMPLAINS OF: Fatigue Ears, nose, mouth, throat: COMPLAINS OF: Throat pain Respiratory: COMPLAINS OF: Cough, Shortness of breath Psychiatric: COMPLAINS OF: Anxiety Past Family Social History Allergies: Coded Allergies: *MDRO Multi-Drug Resistant Organism (Verified Adverse Reaction, Unknown, ) MRSA PCR Screen POSITIVE - 06/27/2016 MRSA (arm) - 08/2003 Past Medical History ESRD Hypertension CHF Cocaine abuse Hepatitis B Past Surgical History AVF placement Left arm hernia repair Reported Medications Reported Meds & Active Scripts Active Reported Omeprazole 20 Mg Tab 20 Mg PO DAILY Cozaar (Losartan Potassium) 50 Mg Tab 50 Mg PO DAILY Labetalol (Labetalol HCl) 200 Mg Tab 200 Mg PO BID Hydralazine HCl 50 Mg Tablet 50 Mg PO TID Nephro-Emmanuel (B-Complex W/ C & Folic Acid) 1 Tab 1 Tab PO DAILY Active Ordered Medications Current Medications Medications (Trade) Dose Ordered Sig/Deanna Route Start Time Stop Time Status Last Admin (NS Flush) 2 ml UNSCH PRN IV FLUSH 05/30/17 23:15 (NS Flush) 2 ml BID IV FLUSH 05/31/17 09:00 (Zofran Inj) 4 mg Q6H PRN IVP 05/30/17 23:15 (Heparin Inj) 5,000 units Q12H SQ 05/31/17 09:00 (Tylenol) 650 mg Q6H PRN PO 05/30/17 23:15 (Santa 5-325 Mg) 1 tab Q4H PRN PO 05/30/17 23:15 (Santa 10-325 Mg) 1 tab Q4H PRN PO 05/30/17 23:15 (Alanna-Colace) 1 tab BID PO 05/31/17 09:00 (Milk Of Magnesia Liq) 30 ml Q12H PRN PO 05/30/17 23:15 (Senokot) 17.2 mg Q12H PRN PO 05/30/17 23:15 (Dulcolax Supp) 10 mg DAILY PRN RECTAL 05/30/17 23:15 (Lactulose Liq) 30 ml DAILY PRN PO 05/30/17 23:15 (Apresoline) 50 mg TID PO 05/31/17 09:00 05/31/17 06:43 (Trandate) 200 mg BID PO 05/31/17 09:00 05/31/17 06:42 (Cozaar) 50 mg DAILY PO 05/31/17 09:00 05/31/17 06:43 (Nephrocaps) 1 cap DAILY PO 05/31/17 09:00 (Protonix) 20 mg DAILY PO 05/31/17 09:00 Sodium Chloride 1,000 ml @ 0 mls/hr Q0M PRN OTHER 05/31/17 09:17 05/31/17 10:43 (Heparin Inj) 8,000 units UNSCH PRN IV FLUSH 05/31/17 09:30 Sodium Chloride 1,000 ml @ 200 mls/hr Q5H PRN IV 05/31/17 09:17 Sodium Chloride 1,000 ml @ 0 mls/hr Q0M PRN OTHER 05/31/17 09:17 (Mannitol Inj) 12.5 gm UNSCH PRN IV 05/31/17 09:30 Albumin Human 100 ml @ 60 mls/hr UNSCH PRN IV 05/31/17 09:30 (NS Flush) 5 ml UNSCH PRN IV FLUSH 05/31/17 09:30 (Heparin Inj) UNSCH PRN .XX 05/31/17 09:30 (Gentamicin Inj) 20 mg UNSCH PRN OTHER 05/31/17 09:30 (Zofran Inj) 4 mg UNSCH PRN IV PUSH 05/31/17 09:30 (Tylenol) 650 mg UNSCH PRN PO 05/31/17 09:30 (Benadryl) 25 mg UNSCH PRN PO 05/31/17 09:30 (Nitrostat Sl) 0.4 mg UNSCH PRN SL 05/31/17 09:30 (Catapres) 0.1 mg UNSCH PRN PO 05/31/17 09:30 (Gelfoam 12 Mm/7 Mm Top) 1 foam UNSCH PRN TOP 05/31/17 09:30 05/31/17 10:43 Family History noncontributory Social History as above hx of cocaine abuse Physical Exam Vital Signs Vital Signs Date Time Temp Pulse Resp B/P (MAP) Pulse Ox O2 Delivery O2 Flow Rate FiO2 05/31/17 08:10 98.4 77 18 153/90 (111) 96 05/31/17 06:17 70 192/110 (137) 05/31/17 04:38 98.1 93 16 181/104 (129) 95 05/31/17 00:38 85 05/31/17 00:23 96.3 81 16 163/92 (115) 98 05/30/17 23:31 05/30/17 23:18 79 18 150/81 (104) 97 Room Air 05/30/17 20:58 81 20 158/93 (114) 96 Room Air 05/30/17 19:12 98.4 85 16 162/88 (112) 96 Physical Exam GENERAL: Well-nourished, well-developed patient. SKIN: Warm and dry. HEAD: Normocephalic. EYES: No scleral icterus. No injection or drainage. NECK: Supple, trachea midline. No JVD or lymphadenopathy. CARDIOVASCULAR: Regular rate and rhythm without murmurs, gallops, or rubs. RESPIRATORY: Breath sounds diminished at bases GASTROINTESTINAL: Abdomen soft, non-tender, nondistended. EXTREMITIES: No cyanosis, 1 plus edema. NEUROLOGICAL: Awake, alert, and oriented x 3. Non-focal. Laboratory Laboratory Tests Test 05/30/17 20:10 05/31/17 07:45 White Blood Count 7.6 7.4 Red Blood Count 3.96 3.94 Hemoglobin 12.1 12.2 Hematocrit 36.8 36.4 Mean Corpuscular Volume 93.0 92.4 Mean Corpuscular Hemoglobin 30.5 31.0 Mean Corpuscular Hemoglobin Concent 32.8 33.6 Red Cell Distribution Width 14.4 14.1 Platelet Count 200 179 Mean Platelet Volume 9.2 9.1 Neutrophils (%) (Auto) 65.4 65.4 Lymphocytes (%) (Auto) 18.2 19.8 Monocytes (%) (Auto) 14.2 12.3 Eosinophils (%) (Auto) 1.7 1.8 Basophils (%) (Auto) 0.5 0.7 Neutrophils # (Auto) 4.9 4.8 Lymphocytes # (Auto) 1.4 1.5 Monocytes # (Auto) 1.1 0.9 Eosinophils # (Auto) 0.1 0.1 Basophils # (Auto) 0.0 0.1 CBC Comment DIFF FINAL DIFF FINAL Differential Comment Blood Urea Nitrogen 25 24 Creatinine 2.53 2.47 Random Glucose 118 88 Total Protein 6.3 6.0 Albumin 3.1 3.0 Calcium Level 8.4 8.5 Alkaline Phosphatase 113 94 Aspartate Amino Transf (AST/SGOT) 22 16 Alanine Aminotransferase (ALT/SGPT) 26 25 Total Bilirubin 0.2 0.4 Sodium Level 144 143 Potassium Level 4.3 4.1 Chloride Level 107 108 Carbon Dioxide Level 30.9 28.8 Anion Gap 6 6 Estimat Glomerular Filtration Rate 33 34 Troponin I LESS THAN 0.02 Lipase 326 Date/Time Source Procedure Growth Status 05/30/17 21:40 Throat Group A Streptococcus Screen Pending Received Result Diagram: 05/31/17 0745 05/31/17 0745 Imaging Last Impressions Chest X-Ray 05/30/17 0000 Signed Impressions: Service Date/Time: Tuesday, May 30, 2017 21:25 - CONCLUSION: Increasing interstitial changes suggesting an Tae Egan MD FACR Assessment and Plan Problem List: (1) ESRD (end stage renal disease) ICD Codes: N18.6 - End-stage renal disease Status: Chronic Plan: Patient is seen during dialysis 4 L uf tolerating it well follow BP continue TTS Fluid restrict 1.2 L /day salt and K restrictions in diet (2) HTN (hypertension) ICD Codes: I10 - Essential (primary) hypertension Plan: continue to monitor (3) Fluid overload ICD Codes: E87.70 - Fluid overload, unspecified Plan: HS in progress/fluid restrict Hal Wade MD May 31, 2017 11:43
[2017-05-31] MEDS: VITAMIN B CMPLX/VITC/FOLIC AC CAP PO SCH (12:49)
[2017-05-31] MEDS: PANTOPRAZOLE SOD 20 MG DELAYED RELEASE TAB PO SCH (12:50)
[2017-05-31] MEDS: DOCUSATE SODIUM 50 MG/SENNA 8.6 MG TAB PO SCH ×2 (12:50→21:19)
[2017-05-31] MEDS: SODIUM CHLORIDE 0.9% FLUSH 10 ML FLUSH IV FLUSH SCH ×2 (12:50→21:20)
[2017-06-01 01:41] VITALS: PULSE 73
[2017-06-01 04:25] VITALS: BP 137/95; PULSE 75; RESP 18; TEMP 98.7; O2SAT 96
[2017-06-01 08:00] VITALS: BP 152/92; PULSE 72; RESP 20; TEMP 99.1; O2SAT 99
[2017-06-01 08:07] VITALS: O2SAT 98
[2017-06-01] MEDS: HEPARIN SODIUM - SQ 10,000 UNITS/ML VIAL SQ SCH ×2 (09:36→09:41)
[2017-06-01] MEDS: PANTOPRAZOLE SOD 20 MG DELAYED RELEASE TAB PO SCH (09:37)
[2017-06-01] MEDS: DOCUSATE SODIUM 50 MG/SENNA 8.6 MG TAB PO SCH (09:37)
[2017-06-01] MEDS: VITAMIN B CMPLX/VITC/FOLIC AC CAP PO SCH (09:37)
[2017-06-01] MEDS: LABETALOL HCL 200 MG TAB PO SCH (09:37)
[2017-06-01] MEDS: hydrALAZINE HCL 50 MG TAB PO SCH ×2 (09:37→13:24)
[2017-06-01] MEDS: LOSARTAN 50 MG TAB PO SCH (09:37)
[2017-06-01] MEDS: SODIUM CHLORIDE 0.9% FLUSH 10 ML FLUSH IV FLUSH SCH (09:37)
[2017-06-01 12:00] VITALS: BP 127/78; PULSE 68; RESP 17; TEMP 98.8; O2SAT 96
--- NOTE | 2017-06-01 14:00 | HHI.PR ---
Subjective Remarks Patient c/o cough and nasal congestion. Denies fevers or chills Denies cp/sob Objective Vitals Vital Signs Date Time Temp Pulse Resp B/P (MAP) Pulse Ox O2 Delivery O2 Flow Rate FiO2 06/01/17 12:00 98.8 68 17 127/78 (94) 96 06/01/17 08:07 98 06/01/17 08:00 99.1 72 20 152/92 (112) 99 06/01/17 04:25 98.7 75 18 137/95 (109) 96 06/01/17 01:41 73 05/31/17 23:39 97.4 75 18 128/81 (97) 95 05/31/17 20:00 98.7 77 16 135/74 (94) 97 05/31/17 15:40 98.0 70 16 130/70 (90) 97 I/O 05/31/17 05/31/17 05/31/17 06/01/17 06/01/17 06/01/17 07:00 15:00 23:00 07:00 15:00 23:00 Intake Total 120 ml Output Total 1600 ml 4000 ml 300 ml Balance -1600 ml -4000 ml -300 ml 120 ml Intake Oral 120 ml Output Urine Total 1600 ml 300 ml Hemodialysis 4000 ml # Voids 2 # Bowel Movements 0 Result Diagram: 05/31/17 0745 05/31/17 0745 Imaging Last Impressions Chest X-Ray 05/30/17 0000 Signed Impressions: Service Date/Time: Tuesday, May 30, 2017 21:25 - CONCLUSION: Increasing interstitial changes suggesting an Tae Egan MD FACR Objective Remarks AAOx3 NAD Clear lungs S1S2 RRR, no MRG abdomen soft, nt, nd no edema in lower extremities Medications and IVs Current Medications Medications (Trade) Dose Ordered Sig/Deanna Route Start Time Stop Time Status Last Admin (NS Flush) 2 ml UNSCH PRN IV FLUSH 05/30/17 23:15 (NS Flush) 2 ml BID IV FLUSH 05/31/17 09:00 06/01/17 09:37 (Zofran Inj) 4 mg Q6H PRN IVP 05/30/17 23:15 (Heparin Inj) 5,000 units Q12H SQ 05/31/17 09:00 (Tylenol) 650 mg Q6H PRN PO 05/30/17 23:15 ([place] 5-325 Mg) 1 tab Q4H PRN PO 05/30/17 23:15 ([place] 10-325 Mg) 1 tab Q4H PRN PO 05/30/17 23:15 05/31/17 12:51 (Alanna-Colace) 1 tab BID PO 05/31/17 09:00 06/01/17 09:37 (Milk Of Magnesia Liq) 30 ml Q12H PRN PO 05/30/17 23:15 (Senokot) 17.2 mg Q12H PRN PO 05/30/17 23:15 (Dulcolax Supp) 10 mg DAILY PRN RECTAL 05/30/17 23:15 (Lactulose Liq) 30 ml DAILY PRN PO 05/30/17 23:15 (Apresoline) 50 mg TID PO 05/31/17 09:00 06/01/17 13:24 (Trandate) 200 mg BID PO 05/31/17 09:00 06/01/17 09:37 (Cozaar) 50 mg DAILY PO 05/31/17 09:00 06/01/17 09:37 (Nephrocaps) 1 cap DAILY PO 05/31/17 09:00 06/01/17 09:37 (Protonix) 20 mg DAILY PO 05/31/17 09:00 06/01/17 09:37 Sodium Chloride 1,000 ml @ 0 mls/hr Q0M PRN OTHER 05/31/17 09:17 05/31/17 10:43 (Heparin Inj) 8,000 units UNSCH PRN IV FLUSH 05/31/17 09:30 Sodium Chloride 1,000 ml @ 200 mls/hr Q5H PRN IV 05/31/17 09:17 Sodium Chloride 1,000 ml @ 0 mls/hr Q0M PRN OTHER 05/31/17 09:17 (Mannitol Inj) 12.5 gm UNSCH PRN IV 05/31/17 09:30 Albumin Human 100 ml @ 60 mls/hr UNSCH PRN IV 05/31/17 09:30 (NS Flush) 5 ml UNSCH PRN IV FLUSH 05/31/17 09:30 (Heparin Inj) UNSCH PRN .XX 05/31/17 09:30 (Gentamicin Inj) 20 mg UNSCH PRN OTHER 05/31/17 09:30 (Zofran Inj) 4 mg UNSCH PRN IV PUSH 05/31/17 09:30 (Tylenol) 650 mg UNSCH PRN PO 05/31/17 09:30 (Benadryl) 25 mg UNSCH PRN PO 05/31/17 09:30 (Nitrostat Sl) 0.4 mg UNSCH PRN SL 05/31/17 09:30 (Catapres) 0.1 mg UNSCH PRN PO 05/31/17 09:30 (Gelfoam 12 Mm/7 Mm Top) 1 foam UNSCH PRN TOP 05/31/17 09:30 05/31/17 10:43 A/P Problem List: (1) Fluid overload ICD Code: E87.70 - Fluid overload, unspecified (2) ESRD (end stage renal disease) ICD Code: N18.6 - End-stage renal disease Status: Chronic (3) Generalized weakness ICD Code: R53.1 - Weakness (4) HTN (hypertension) ICD Code: I10 - Essential (primary) hypertension Assessment and Plan 1. Fluid Overload: likely combination of CHF and ESRD, CXR w/ interstitial edema, images reviewed by me. S/p Lasix in ER, monitor I/O. 06/01 SP hemodyalisis on 05/31. SOB resolved. Appreciate nephrology input. K and sodium restriction. 2. ESRD on HD: T//Fri, follows w/ Dr. Moses as outpatient, will consult to resume HD in am secondary to fluid overload and SOB 3. HTN: Uncontrolled. BP 150-160's systolic, resume home medications, monitor BP 06/01 BP better controlled. 4. Generalized Weakness: likely due to above, will re-eval following HD. PT for eval/tx 06/01 PT evaluated patient. No PT recommended upon DC. 5. DVT Prophylaxis: Heparin sq 6. Social work for d/c planning as needed. 8. cough/nasal congestion: Flu negative. Group A screen negative. Will Rx Robitussin DM and also Rx Flonase for nasal congestion. Discharge Planning DC pending nephrology clearance Damir Hernandez MD Jun 01, 2017 14:00
--- NOTE | 2017-06-01 14:18 | HHI.DCPOC ---
Discharge Care Plan Diagnosis: (1) Fluid overload (2) Generalized weakness (3) ESRD (end stage renal disease) (4) HTN (hypertension) Goals to Promote Your Health * To prevent worsening of your condition and complications * To maintain your health at the optimal level Directions to Meet Your Goals Take your medications as prescribed Follow your dietary instruction Follow activity as directed Keep your appointments as scheduled Take your immunizations and boosters as scheduled If your symptoms worsen call your PCP, if no PCP go to Urgent Care Center or Emergency Room Smoking is Dangerous to Your Health. Avoid second hand smoke Call the 24-hour hour crisis hotline for domestic abuse at Damir Hernandez MD Jun 01, 2017 14:18
[2017-06-01] MEDS ORDERED: DEXT10SY2 PO (14:21)
[2017-06-01] MEDS ORDERED: FLUT50SP NASAL (14:21)
--- NOTE | 2017-06-01 14:29 | HHI.DS ---
Discharge Summary Admission Date May 30, 2017 at 23:00 Discharge Date: Jun 01, 2017 Admitting Diagnosis Fluid overload (1) Fluid overload ICD Code: E87.70 - Fluid overload, unspecified Diagnosis: Principal Status: Resolved (2) ESRD (end stage renal disease) ICD Code: N18.6 - End-stage renal disease Status: Chronic (3) Generalized weakness ICD Code: R53.1 - Weakness Diagnosis: Principal (4) HTN (hypertension) ICD Code: I10 - Essential (primary) hypertension Diagnosis: Principal (5) Flu-like symptoms ICD Code: R68.89 - Other general symptoms and signs Diagnosis: Principal Status: Acute Procedures None Brief History - From Admission This is a 51-year-old male with a PMH of HTN, CHF (Echo 10/09/2012 w/ EF 55-60%) , h/o Cocaine Abuse and ESRD on who presented to the ER w/ complaints of SOB and generalized weakness. Reports associated sore throat, but no fever, chills, chest pain, nausea, vomiting or diarrhea. Had HD on w/ no complications. On arrival, BP 162/88, HR 85, O2 sat 96% RA, Afebrile. CBC essentially at baseline. Creatinine 2.53, previously 1.99 on 02/22/2017. CXR with increasing interstitial changes suggesting fluid overload. S/p Lasix in ER. CBC/BMP: 05/31/17 0745 05/31/17 0745 Significant Findings Laboratory Tests Test 05/30/17 20:10 05/31/17 07:45 Red Blood Count 3.96 MIL/MM3 (4.50-5.90) 3.94 MIL/MM3 (4.50-5.90) Hemoglobin 12.1 GM/DL (13.0-17.0) 12.2 GM/DL (13.0-17.0) Hematocrit 36.8 % (39.0-51.0) 36.4 % (39.0-51.0) Monocytes (%) (Auto) 14.2 % (0.0-8.0) 12.3 % (0.0-8.0) Monocytes # (Auto) 1.1 TH/MM3 (0-0.9) Blood Urea Nitrogen 25 MG/DL (7-18) 24 MG/DL (7-18) Creatinine 2.53 MG/DL (0.60-1.30) 2.47 MG/DL (0.60-1.30) Random Glucose 118 MG/DL (74-106) Total Protein 6.3 GM/DL (6.4-8.2) 6.0 GM/DL (6.4-8.2) Albumin 3.1 GM/DL (3.4-5.0) 3.0 GM/DL (3.4-5.0) Calcium Level 8.4 MG/DL (8.5-10.1) Estimat Glomerular Filtration Rate 33 ML/MIN (>89) 34 ML/MIN (>89) Troponin I LESS THAN 0.02 NG/ML Chloride Level 108 MEQ/L (98-107) Imaging Last Impressions Chest X-Ray 05/30/17 0000 Signed Impressions: Service Date/Time: Tuesday, May 30, 2017 21:25 - CONCLUSION: Increasing interstitial changes suggesting an Tae Egan MD FACR PE at Discharge AAOx3 NAD Clear lungs S1S2 RRR, no MRG abdomen soft, nt, nd no edema in lower extremities Hospital Course The patient presented with flulike symptoms, complaining of sore throat, cough and nasal congestion along with shortness of breath. Chest x-ray showed pulmonary congestion concordant with fluid overload patient was placed on outpatient observation and nephrology was consulted. The patient was taken to have hemodialysis done after which the patient's shortness of breath improved. The patient was started on Flonase for nasal congestion and Robitussin-DM for cough. Case discussed with Dr. Wade who cleared the patient to be discharged on resume his usual Friday, and Friday schedule outpatient hemodialysis. Pt Condition on Discharge: Stable Discharge Disposition: Discharge Home Discharge Time: <= 30 minutes Discharge Instructions DIET: Follow Instructions for: Renal Failure Diet, Low Sodium Diet Activities you can perform: Regular-No Restrictions Activities to Avoid: Prolonged Standing, Strenuous Activity Follow up Referrals: Nephrology - 2 Weeks PCP Follow-up - 1 Week New Medications: Dextromethorphan-Guaifenesin (Dextromethorphan/Guaifene 10-100 mg/5Ml) 100 Mg- 10 Mg/5 Ml Syp 10 ML PO Q6H PRN for COUGH, #1 BOTTLE Fluticasone Nasal Brady (Fluticasone Nasal Brady) 50 Mcg/Act Naspr 1 SPRAY NASAL BID for nasal congestion, #2 BOTTLE 50 mcg/spray Continued Medications: B-Complex W/ C & Folic Acid (Nephro-Emmanuel) 1 Tab 1 TAB PO DAILY for Nutritional Supplement, #30 TAB 0 Refills Hydralazine HCl (Hydralazine HCl) 50 Mg Tablet 50 MG PO TID for Blood Pressure Management Labetalol (Labetalol) 200 Mg Tab 200 MG PO BID for Blood Pressure Management, TAB 0 Refills Losartan (Cozaar) 50 Mg Tab 50 MG PO DAILY for Blood Pressure Management, #30 TAB 0 Refills Omeprazole (Omeprazole) 20 Mg Tab 20 MG PO DAILY, #30 TAB 0 Refills Damir Hernandez MD Jun 01, 2017 14:29
[2017-06-01] MEDS ORDERED: FLUTICASONE PROPIONATE 50 MCG/ACT 16 GM NASAL SPRAY NASAL SCH (14:30)
[2017-06-01] MEDS ORDERED: guaiFENesin/DEXTROMETHORPHAN 200 MG/20 MG/10 ML CUP PO PRN (14:30)
== END 2017-06-01 15:50 | disposition home or self-care (01) ==
LOC: NEPC 19:02 → NEDA 23:00 → NEPGCP 05-31 00:01
PROVIDERS: ADMIT Hospitalist; ATTEND Hospitalist
DX: E87.70 Fluid overload, unspecified (principal); R53.1 Weakness; I13.2 Hypertensive heart and chronic kidney disease with heart failure and with stage 5 chronic kidney disease, or end stage renal disease; N18.6 End stage renal disease; I50.9 Heart failure, unspecified; R07.9 Chest pain, unspecified; F17.210 Nicotine dependence, cigarettes, uncomplicated; R59.1 Generalized enlarged lymph nodes; R09.81 Nasal congestion; R05 Cough; F14.10 Cocaine abuse, uncomplicated; Z99.2 Dependence on renal dialysis
CPT/HCPCS: 71046; 80053; 83690; 84484; 85025; 87081; 87804; 87880; 90935; 96374; 97163; 99285; G0378; G8987; G8988; J1940; J7030; G0257; J1644